=== PATIENT | male | born 1975 | race Caucasian/White ===

== ENCOUNTER 2017-04-04 23:12 | Emergency (ER) | payer BC ==
--- NOTE | 2017-04-05 01:29 | ED ORDER SUMMARY ---
..... Patient: RIAN EASLEY OrderSheet [facility] VisitID: [id number] [address] [place] [address] 41y, M Registration Date/Time: 04/04/2017 ORDER SHEET Weight: 185.9 kg (stated) Allergies: No Known Drug Allergy GENERAL ORDERS: MEDICATION ORDERS: Silver Nitrate Applicator Topical 1 application (NOW) (00:15 04/05/2017 HSoule verbal order read back to Jessica CORCORAN) (0:16 HSoule) IV FLUIDS: ORDER SHEET NOTES: [Electronically signed by Nelli Hallman (01:58 04/05/2017)] [Electronically signed by Ulisses Curry MD (23:59 04/05/2017)] [Electronically locked/signed by Nelli Hallman (01:58 04/05/2017)]
--- NOTE | 2017-04-05 01:29 | ED ORDER SUMMARY ---
..... Patient: RIAN EASLEY OrderSheet [facility] VisitID: [id number] [address] [place] [place] [address] 41y, M Registration Date/Time: 04/04/2017 ORDER SHEET Weight: 185.9 kg (stated) Allergies: No Known Drug Allergy GENERAL ORDERS: MEDICATION ORDERS: Silver Nitrate Applicator Topical 1 application (NOW) (00:15 04/05/2017 HSoule verbal order read back to Jessica CORCORAN) (0:16 HSoule) IV FLUIDS: ORDER SHEET NOTES: [Electronically signed by Nelli Hallman (01:58 04/05/2017)] [Electronically signed by Ulisses Curry MD (23:59 04/05/2017)] [Electronically locked/signed by Nelli Hallman (01:58 04/05/2017)]
--- NOTE | 2017-04-05 01:29 | ED CLINICAL REPORT ---
Clinical Report - Physicians/Mid Levels [facility] [address] [place] [address] 04/04/2017 23:14 Patient: RIAN EASLEY Time Seen: 00:00 Apr 05 2017. Arrived- By private vehicle. Historian- patient. CPT: ER phys charges level 4 plus (#[id number]). HISTORY OF PRESENT ILLNESS Chief Complaint: Bleeding form op site in mouth. This started yesterday This started yesterday. ( Patient reports surgery on his mouth to remove a stone in his salivary gland. He states that surgery was on Friday. He went and had to have it cauterized to stop some bleeding and then it began to bleed again this morning. He reports he is on blood thinners, he states he was not told to dose down before surgery but after cautery was told to reduce his dose and has done so.). and is still present. Pain described as moderate. No sore throat, mouth sores or nasal discharge or congestion. No swollen jaw or face. Similar symptoms previously: None. Recent medical care: The patient was seen recently at another facility in the office. REVIEW OF SYSTEMS No fever, eye discomfort, cough, difficulty breathing or chest pain. No nausea, headache, joint pain, skin rash or enlarged lymph nodes. No vomiting, epistaxis, sore throat, black stools or bloody stools. No abnormal bleeding, diabetic symptoms or easy bruising. All systems otherwise negative, except as recorded above. PAST HISTORY Hypertension. DVT - Deep Venous Thrombosis. Lymphedema. Diabetes Mellitus. ADDITIONAL SURGERIES: Fracture Repair. Tonsillectomy. Medications: Pravastatin Sodium Oral. Plavix Oral. Omeprazole Oral. Amitriptyline HCl Oral. Furosemide Oral. Metoprolol Tartrate Oral. Victoza Subcutaneous. Treceba- diabetes medication . NovoLOG Subcutaneous. Warfarin Sodium Oral (Tablet 10 mg), daily. Allergies: No Known Drug Allergy. SOCIAL HISTORY Never smoker. No alcohol use or drug use. ADDITIONAL NOTES The nursing notes have been reviewed. PHYSICAL EXAM Vital Signs: 04/04/2017 23:20 BP: 103/51. HR: 76. RR: 20. O2 saturation: 99%. Temp: 97.7 F. Pain level now: 0/10. Appearance: Alert. Patient in mild distress. Head: Normal external inspection. Eyes: Pupils equal, round and reactive to light. Conjunctivae and eyelids normal. ENT: Ears normal. Nose normal. No trismus present. (Sublingula surgical site with constant bleeding. Source pulsatile.). Neck: Trachea midline. No adenopathy. CVS: Normal heart rate and rhythm. Heart sounds normal. Pulses normal. Respiratory: No respiratory distress. Breath sounds normal. Chest nontender. Abdomen: Soft. Skin: Normal skin color. No rash. Extremities: Extremities nontender. Neuro: Oriented X 3. PROGRESS AND PROCEDURES PROCEDURES (Bleeding wound hemostasis procedure: Sublingual surgical site bleeding anterior and inferior. Mouth irrigated and local pressure applied until bleeding slowed. Silver nitrate cautery used to attempt hemostasis but failed. After 2% lidocaine with epi anesthesia, the bleeding site was finally controlled with 2 figure of eight stitches of 5.0 absorbable suture. Pt observed after irrigation and bleeding controlled.). Patient/family counseled. Disposition: Discharged. Condition: stable and improved. CLINICAL IMPRESSION Arteriolar bleeding from oral surgical site. INSTRUCTIONS No strenuous activity. (Drink cool liquids. Keep head elevated. Keep mouth closed and avoid moving tongue.). Warnings: Further evaluation is necessary. GENERAL WARNINGS: Return or contact your physician immediately if your condition worsens or changes unexpectedly, if not improving as expected, or if other problems arise. Your Current Medications: STOP TAKING THE FOLLOWING MEDICATIONS: Warfarin Sodium Oral : Tablet 10 mg, daily. CONTINUE TAKING THE FOLLOWING MEDICATIONS: Amitriptyline HCl Oral. Furosemide Oral. Metoprolol Tartrate Oral. NovoLOG Subcutaneous. Omeprazole Oral. Plavix Oral. Pravastatin Sodium Oral. Treceba- diabetes medication *. Victoza Subcutaneous. Follow-up: Follow up with your doctor in three days. Call for an appointment. Follow up with an ear, nose and throat physician (an cfd engineer) Friday in two days. Call for the next available appointment. Understanding of the discharge instructions verbalized by patient and family. Discharge instructions reviewed with and understanding was verbalized by spouse. (Electronically signed by Ulisses Curry MD 04/05/2017 23:59)
--- NOTE | 2017-04-05 01:29 | ED NURSING NOTES ---
Clinical Report - Nurses [facility] [address] [place] [address] 04/04/2017 23:14 [id number] Triage time 23:Apr 04 2017. Acuity: LEVEL 3. Chief Complaint: (Post op complication). SEPSIS SCREEN: Sepsis Screen: negative. Negative (no infection suspected/documented). ACOSTA COMA SCORE: Acosta Coma Scale: 15- eyes open spontaneously (4); best verbal response- oriented x 4 (5); best motor response- obeys commands (6). --23:28 Nelli Hallman 23:20 04/04/17. BP: 103/51. HR: 76. RR: 20. O2 saturation: 99% on room air. Temp: 97.7 F (oral). Pain level now: 0/10. --23:28 Nelli Hallman. Weight: 185.9 kg stated. Height/Length: 77 inches Per Patient. BMI: 48.6. --23:26 Nelli Hallman. Medications Warfarin Sodium Oral (Tablet 10 mg), daily. --23:23 Nelli Hallman NovoLOG Subcutaneous. --23:23 Nelli Hallman Treceba- diabetes medication . --23:23 Nelli Hallman Victoza Subcutaneous. --23:23 Nelli Hallman Metoprolol Tartrate Oral. --23:24 Nelli Hallman Furosemide Oral. --23:24 Nelli Hallman Amitriptyline HCl Oral. --23:24 Nelli Hallman Omeprazole Oral. --23:24 Nelli Hallman Plavix Oral. --23:25 Nelli Hallman Pravastatin Sodium Oral. --23:25 Nelli Hallman. Medication/allergy information source: the patient. --23:28 Nelli Hallman. Allergies No Known Drug Allergy. --23:25 Nelli Hallman. History Arrived by private vehicle. Historian: patient. Accompanied by family. Primary physician (valentin barker). This started yesterday. ( Patient reports surgery on his mouth to remove a stone in his salivary gland. He states that surgery was on Friday. He went and had to have it cauterized done to stop some bleeding and then it began to bleed again this morning. He reports he is on blood thinners, he states he was not told to dose down before surgery but after cautery was told to reduce his dose and has done so.). PAST MEDICAL HX: Immunizations: up-to-date. SOCIAL HX: Never smoker. No alcohol use or drug use. No infectious disease exposure. ABUSE ASSESSMENT: No report of abuse. FALL RISK ASSESSMENT: Fall risk assessment completed. No fall risk identified. NUTRITIONAL RISK ASSESSMENT: The nutritional risk assessment revealed no deficiencies. FUNCTIONAL ASSESSMENT: Functional assessment: no impairments noted. LEARNING NEEDS ASSESSMENT: The learning needs assessment revealed no barriers. SKIN INTEGRITY ASSESSMENT: Skin integrity risk assessment completed. No skin integrity risk identified. --23:28 Nelli Hallman. PROBLEMS: Hypertension. DVT - Deep Venous Thrombosis. Lymphedema. Diabetes Mellitus. --23:26 Nelli Hallman. ADDITIONAL SURGERIES: Fracture Repair. Tonsillectomy. --23: Nelli Hallman. Interventions ID band on patient. To treatment room. --:28 Nelli Hallman. PHYSICAL ASSESSMENT :04/04/17. Ambulatory to room. GENERAL / NEURO / PSYCH: Alert. Oriented X 4. Appears in no acute distress. HEENT: ( bleeding noted from right salivary gland). Mucous membranes are pink. RESPIRATORY: Respirations not labored. CVS: Normal sinus rhythm noted. SKIN: Skin is warm and dry. --23:28 Nelli Hallman. NURSING PROGRESS NOTES :04/04/17. Pulse oximeter and NIBP monitor placed on patient; monitor alarms on. Reassurance given to the patient and patient's family. Two patient identifiers checked. Call light placed in reach. Side rails up x 1. Bed placed in lowest position. Brakes of bed on. Patient ready for evaluation- chart flagged and ED physician notified. --: Nelli Hallman Patient ID band checked for patient name and birthdate: patient confirmed. Blood samples drawn from the right hand with Vacutainer and 23g butterfly by nurse per protocol ; labeled in presence of the patient and sent to lab: rainbow set and red, green, purple and blue top. --23:46 Thelma Quintero R.N. ( Provider at bedside). --00:15 Nelli Hallman 00:15 04/05/2017 SILVER NITRATE APPLICATOR (Silver Nitrate Applicator) Topical Topical Solution 1 application. Allergies verified and confirmed 5 rights. (Applied by provider). --00:16 Nelli Hallman WOUND REPAIR: Wound repair performed by ED physician. Assisted by one nurse. Preparation: suture tray set-up with 2% lidocaine with epi. Wound cleansed per physician. Procedure: wound repaired with sutures. Post-procedure: he was stable. Total time of assist / procedure: 15 minutes. --00:49 Nelli Hallman 01:00 04/05/17. BP: 154/95. HR: 70. RR: 20. O2 saturation: 98% on room air. --01:29 Nelli Hallman. DISPOSITION / DISCHARGE 01:29 04/05/17. Condition at departure: improved and stable. The goals identified in the patient's plan of care were met. FALL RISK ASSESSMENT: Fall risk assessment completed. No fall risk identified. --01:29 Nelli Hallman 01:26 04/05/17. BP: 160/100. HR: 75. RR: 20. O2 saturation: 98% on room air. Temp: deferred. Pain level now: 2/10. --01:29 Nelli Hallman 01:35 04/05/17. No learning barriers present. Discharge instructions provided and reviewed with the patient and spouse. Patient and spouse verbalized understanding. Written instructions provided in Danish. ( Keep mouth closed and avoid moving tongue. Drink only cold liquids. Keep head upright. Follow up on Friday as planned. Return if bleeding continues. Patient and spouse verbalized understanding and had no questions at this time.). The patient was discharged by the physician. He was discharged home and accompanied by spouse. He left the Emergency Department ambulatory and via private vehicle. Spouse driving. --01:58 Nelli Hallman. Locked/Released at 04/05/2017 1:58 by Nelli Hallman,
--- NOTE | 2017-04-05 01:29 | ED CLINICAL REPORT ---
Clinical Report - Physicians/Mid Levels [facility] [address] [place] [address] 04/04/2017 23:14 Patient: RIAN EASLEY Time Seen: 00:00 Apr 05 2017. Arrived- By private vehicle. Historian- patient. CPT: ER phys charges level 4 plus (#[id number]). HISTORY OF PRESENT ILLNESS Chief Complaint: Bleeding form op site in mouth. This started yesterday This started yesterday. ( Patient reports surgery on his mouth to remove a stone in his salivary gland. He states that surgery was on Friday. He went and had to have it cauterized to stop some bleeding and then it began to bleed again this morning. He reports he is on blood thinners, he states he was not told to dose down before surgery but after cautery was told to reduce his dose and has done so.). and is still present. Pain described as moderate. No sore throat, mouth sores or nasal discharge or congestion. No swollen jaw or face. Similar symptoms previously: None. Recent medical care: The patient was seen recently at another facility in the office. REVIEW OF SYSTEMS No fever, eye discomfort, cough, difficulty breathing or chest pain. No nausea, headache, joint pain, skin rash or enlarged lymph nodes. No vomiting, epistaxis, sore throat, black stools or bloody stools. No abnormal bleeding, diabetic symptoms or easy bruising. All systems otherwise negative, except as recorded above. PAST HISTORY Hypertension. DVT - Deep Venous Thrombosis. Lymphedema. Diabetes Mellitus. ADDITIONAL SURGERIES: Fracture Repair. Tonsillectomy. Medications: Pravastatin Sodium Oral. Plavix Oral. Omeprazole Oral. Amitriptyline HCl Oral. Furosemide Oral. Metoprolol Tartrate Oral. Victoza Subcutaneous. Treceba- diabetes medication . NovoLOG Subcutaneous. Warfarin Sodium Oral (Tablet 10 mg), daily. Allergies: No Known Drug Allergy. SOCIAL HISTORY Never smoker. No alcohol use or drug use. ADDITIONAL NOTES The nursing notes have been reviewed. PHYSICAL EXAM Vital Signs: 04/04/2017 23:20 BP: 103/51. HR: 76. RR: 20. O2 saturation: 99%. Temp: 97.7 F. Pain level now: 0/10. Appearance: Alert. Patient in mild distress. Head: Normal external inspection. Eyes: Pupils equal, round and reactive to light. Conjunctivae and eyelids normal. ENT: Ears normal. Nose normal. No trismus present. (Sublingula surgical site with constant bleeding. Source pulsatile.). Neck: Trachea midline. No adenopathy. CVS: Normal heart rate and rhythm. Heart sounds normal. Pulses normal. Respiratory: No respiratory distress. Breath sounds normal. Chest nontender. Abdomen: Soft. Skin: Normal skin color. No rash. Extremities: Extremities nontender. Neuro: Oriented X 3. PROGRESS AND PROCEDURES PROCEDURES (Bleeding wound hemostasis procedure: Sublingual surgical site bleeding anterior and inferior. Mouth irrigated and local pressure applied until bleeding slowed. Silver nitrate cautery used to attempt hemostasis but failed. After 2% lidocaine with epi anesthesia, the bleeding site was finally controlled with 2 figure of eight stitches of 5.0 absorbable suture. Pt observed after irrigation and bleeding controlled.). Patient/family counseled. Disposition: Discharged. Condition: stable and improved. CLINICAL IMPRESSION Arteriolar bleeding from oral surgical site. INSTRUCTIONS No strenuous activity. (Drink cool liquids. Keep head elevated. Keep mouth closed and avoid moving tongue.). Warnings: Further evaluation is necessary. GENERAL WARNINGS: Return or contact your physician immediately if your condition worsens or changes unexpectedly, if not improving as expected, or if other problems arise. Your Current Medications: STOP TAKING THE FOLLOWING MEDICATIONS: Warfarin Sodium Oral : Tablet 10 mg, daily. CONTINUE TAKING THE FOLLOWING MEDICATIONS: Amitriptyline HCl Oral. Furosemide Oral. Metoprolol Tartrate Oral. NovoLOG Subcutaneous. Omeprazole Oral. Plavix Oral. Pravastatin Sodium Oral. Treceba- diabetes medication *. Victoza Subcutaneous. Follow-up: Follow up with your doctor in three days. Call for an appointment. Follow up with an ear, nose and throat physician (an managed care director) Friday in two days. Call for the next available appointment. Understanding of the discharge instructions verbalized by patient and family. Discharge instructions reviewed with and understanding was verbalized by spouse. (Electronically signed by Ulisses Curry MD 04/05/2017 23:59)
--- NOTE | 2017-04-05 01:29 | ED NURSING NOTES ---
Clinical Report - Nurses [facility] [address] [place] [address] 04/04/2017 23:14 [id number] Triage time 23:Apr 04 2017. Acuity: LEVEL 3. Chief Complaint: (Post op complication). SEPSIS SCREEN: Sepsis Screen: negative. Negative (no infection suspected/documented). ACOSTA COMA SCORE: Acosta Coma Scale: 15- eyes open spontaneously (4); best verbal response- oriented x 4 (5); best motor response- obeys commands (6). --23:28 Nelli Hallman 23:20 04/04/17. BP: 103/51. HR: 76. RR: 20. O2 saturation: 99% on room air. Temp: 97.7 F (oral). Pain level now: 0/10. --23:28 Nelli Hallman. Weight: 185.9 kg stated. Height/Length: 77 inches Per Patient. BMI: 48.6. --23:26 Nelli Hallman. Medications Warfarin Sodium Oral (Tablet 10 mg), daily. --23:23 Nelli Hallman NovoLOG Subcutaneous. --23:23 Nelli Hallman Treceba- diabetes medication . --23:23 Nelli Hallman Victoza Subcutaneous. --23:23 Nelli Hallman Metoprolol Tartrate Oral. --23:24 Nelli Hallman Furosemide Oral. --23:24 Nleli Hallman Amitriptyline HCl Oral. --23:24 Nelli Hallman Omeprazole Oral. --23:24 Nelli Hallman Plavix Oral. --23:25 Nelli Hallman Pravastatin Sodium Oral. --23:25 Nelli Hallman. Medication/allergy information source: the patient. --23:28 Nelli Hallman. Allergies No Known Drug Allergy. --23:25 Nelli Hallman. History Arrived by private vehicle. Historian: patient. Accompanied by family. Primary physician (valentin abrker). This started yesterday. ( Patient reports surgery on his mouth to remove a stone in his salivary gland. He states that surgery was on Friday. He went and had to have it cauterized done to stop some bleeding and then it began to bleed again this morning. He reports he is on blood thinners, he states he was not told to dose down before surgery but after cautery was told to reduce his dose and has done so.). PAST MEDICAL HX: Immunizations: up-to-date. SOCIAL HX: Never smoker. No alcohol use or drug use. No infectious disease exposure. ABUSE ASSESSMENT: No report of abuse. FALL RISK ASSESSMENT: Fall risk assessment completed. No fall risk identified. NUTRITIONAL RISK ASSESSMENT: The nutritional risk assessment revealed no deficiencies. FUNCTIONAL ASSESSMENT: Functional assessment: no impairments noted. LEARNING NEEDS ASSESSMENT: The learning needs assessment revealed no barriers. SKIN INTEGRITY ASSESSMENT: Skin integrity risk assessment completed. No skin integrity risk identified. --23:28 Nelli Hallman. PROBLEMS: Hypertension. DVT - Deep Venous Thrombosis. Lymphedema. Diabetes Mellitus. --23:26 Nelli Hallman. ADDITIONAL SURGERIES: Fracture Repair. Tonsillectomy. --23: eNlli Hallman. Interventions ID band on patient. To treatment room. --:28 Nelli Hallman. PHYSICAL ASSESSMENT :04/04/17. Ambulatory to room. GENERAL / NEURO / PSYCH: Alert. Oriented X 4. Appears in no acute distress. HEENT: ( bleeding noted from right salivary gland). Mucous membranes are pink. RESPIRATORY: Respirations not labored. CVS: Normal sinus rhythm noted. SKIN: Skin is warm and dry. --23:28 Nelli Hallman. NURSING PROGRESS NOTES :04/04/17. Pulse oximeter and NIBP monitor placed on patient; monitor alarms on. Reassurance given to the patient and patient's family. Two patient identifiers checked. Call light placed in reach. Side rails up x 1. Bed placed in lowest position. Brakes of bed on. Patient ready for evaluation- chart flagged and ED physician notified. --: Nelli Hallman Patient ID band checked for patient name and birthdate: patient confirmed. Blood samples drawn from the right hand with Vacutainer and 23g butterfly by nurse per protocol ; labeled in presence of the patient and sent to lab: rainbow set and red, green, purple and blue top. --23:46 Thelma Quintero R.N. ( Provider at bedside). --00:15 Nelli Hallman 00:15 04/05/2017 SILVER NITRATE APPLICATOR (Silver Nitrate Applicator) Topical Topical Solution 1 application. Allergies verified and confirmed 5 rights. (Applied by provider). --00:16 Nelli Hallman WOUND REPAIR: Wound repair performed by ED physician. Assisted by one nurse. Preparation: suture tray set-up with 2% lidocaine with epi. Wound cleansed per physician. Procedure: wound repaired with sutures. Post-procedure: he was stable. Total time of assist / procedure: 15 minutes. --00:49 Nelli Hallman 01:00 04/05/17. BP: 154/95. HR: 70. RR: 20. O2 saturation: 98% on room air. --01:29 Nelli Hallman. DISPOSITION / DISCHARGE 01:29 04/05/17. Condition at departure: improved and stable. The goals identified in the patient's plan of care were met. FALL RISK ASSESSMENT: Fall risk assessment completed. No fall risk identified. --01:29 Nelli Hallman 01:26 04/05/17. BP: 160/100. HR: 75. RR: 20. O2 saturation: 98% on room air. Temp: deferred. Pain level now: 2/10. --01:29 Nelli Hallman 01:35 04/05/17. No learning barriers present. Discharge instructions provided and reviewed with the patient and spouse. Patient and spouse verbalized understanding. Written instructions provided in Frisian. ( Keep mouth closed and avoid moving tongue. Drink only cold liquids. Keep head upright. Follow up on Friday as planned. Return if bleeding continues. Patient and spouse verbalized understanding and had no questions at this time.). The patient was discharged by the physician. He was discharged home and accompanied by spouse. He left the Emergency Department ambulatory and via private vehicle. Spouse driving. --01:58 Nelli Hallman. Locked/Released at 04/05/2017 1:58 by Nelli Hallman,
--- NOTE | 2017-04-05 23:59 | ED MED RECONCILIATION SUMMARY ---
Patient: RIAN EASLEY Medication Reconciliation Report [facility] VisitID: [id number] [address] [place] [address] 41y, M Registration Date/Time: 04/04/2017 Weight: 185.9 kg Height/Length: 77 in. BMI: 48.6 ALLERGIES: No Known Drug Allergy The patient's Home Medications are listed below: STOP TAKING THE FOLLOWING MEDICATIONS: Warfarin Sodium Oral (10 mg), daily CONTINUE TAKING THE FOLLOWING MEDICATIONS: Amitriptyline HCl Oral Furosemide Oral Metoprolol Tartrate Oral NovoLOG Subcutaneous Omeprazole Oral Plavix Oral Pravastatin Sodium Oral Treceba- diabetes medication Victoza Subcutaneous The source(s) of the original Home Medication information: patient The following Medications were given to the patient in the Emergency Department: SILVER NITRATE APPLICATOR [TOPICAL] Topical 1 application, administered: 04/05/2017 12:15:00 AM The following Medications were prescribed to the patient: None.
--- NOTE | 2017-04-05 23:59 | ED MAR SUMMARY ---
..... Medication Administration Record [address] [place] [address] Patient: RIAN EASLEY Visit ID: [id number] 41y, M Weight: 185.9 kg Height/Length: 77 in BMI: 48.6 ALLERGIES: No Known Drug Allergy Given 00:15 04/05/2017 Nelli Hallman, Medication Administered: SILVER NITRATE APPLICATOR [TOPICAL] (SILVER NITRATE APPLICATOR), Dose: 1 application Topical Solution Topical. Medication Ordered: Silver Nitrate Applicator Topical 1 application (NOW).
--- NOTE | 2017-04-05 23:59 | ED MED RECONCILIATION SUMMARY ---
Patient: RIAN EASLEY Medication Reconciliation Report [facility] VisitID: [id number] [address] [place] [address] 41y, M Registration Date/Time: 04/04/2017 Weight: 185.9 kg Height/Length: 77 in. BMI: 48.6 ALLERGIES: No Known Drug Allergy The patient's Home Medications are listed below: STOP TAKING THE FOLLOWING MEDICATIONS: Warfarin Sodium Oral (10 mg), daily CONTINUE TAKING THE FOLLOWING MEDICATIONS: Amitriptyline HCl Oral Furosemide Oral Metoprolol Tartrate Oral NovoLOG Subcutaneous Omeprazole Oral Plavix Oral Pravastatin Sodium Oral Treceba- diabetes medication Victoza Subcutaneous The source(s) of the original Home Medication information: patient The following Medications were given to the patient in the Emergency Department: SILVER NITRATE APPLICATOR [TOPICAL] Topical 1 application, administered: 04/05/2017 12:15:00 AM The following Medications were prescribed to the patient: None.
--- NOTE | 2017-04-05 23:59 | ED DISCHARGE INSTRUCTIONS ---
Patient: RIAN EASLEY General Instructions [facility] VisitID: [id number] [address] [place] [address] 41y, M Registration Date/Time: 04/04/2017 Arteriolar bleeding from oral surgical site. INSTRUCTIONS No strenuous activity. (Drink cool liquids. Keep head elevated. Keep mouth closed and avoid moving tongue.). Warnings: Further evaluation is necessary. GENERAL WARNINGS: Return or contact your physician immediately if your condition worsens or changes unexpectedly, if not improving as expected, or if other problems arise. Your Current Medications: STOP TAKING THE FOLLOWING MEDICATIONS: Warfarin Sodium Oral : Tablet 10 mg, daily. CONTINUE TAKING THE FOLLOWING MEDICATIONS: Amitriptyline HCl Oral. Furosemide Oral. Metoprolol Tartrate Oral. NovoLOG Subcutaneous. Omeprazole Oral. Plavix Oral. Pravastatin Sodium Oral. Treceba- diabetes medication *. Victoza Subcutaneous. Follow-up: Follow up with your doctor in three days. Call for an appointment. Follow up with an ear, nose and throat physician (an handy worker) Friday in two days. Call for the next available appointment. Understanding of the discharge instructions verbalized by patient and family. Discharge instructions reviewed with and understanding was verbalized by spouse. No strenuous activity. (Electronically signed by Ulisses Curry MD 04/05/2017 23:59)
--- NOTE | 2017-04-05 23:59 | ED DISCHARGE INSTRUCTIONS ---
Patient: RIAN EASLEY General Instructions [facility] VisitID: [id number] [address] [place] [address] 41y, M Registration Date/Time: 04/04/2017 Arteriolar bleeding from oral surgical site. INSTRUCTIONS No strenuous activity. (Drink cool liquids. Keep head elevated. Keep mouth closed and avoid moving tongue.). Warnings: Further evaluation is necessary. GENERAL WARNINGS: Return or contact your physician immediately if your condition worsens or changes unexpectedly, if not improving as expected, or if other problems arise. Your Current Medications: STOP TAKING THE FOLLOWING MEDICATIONS: Warfarin Sodium Oral : Tablet 10 mg, daily. CONTINUE TAKING THE FOLLOWING MEDICATIONS: Amitriptyline HCl Oral. Furosemide Oral. Metoprolol Tartrate Oral. NovoLOG Subcutaneous. Omeprazole Oral. Plavix Oral. Pravastatin Sodium Oral. Treceba- diabetes medication *. Victoza Subcutaneous. Follow-up: Follow up with your doctor in three days. Call for an appointment. Follow up with an ear, nose and throat physician (an housekeeping lead) Friday in two days. Call for the next available appointment. Understanding of the discharge instructions verbalized by patient and family. Discharge instructions reviewed with and understanding was verbalized by spouse. No strenuous activity. (Electronically signed by Ulisses Curry MD 04/05/2017 23:59)
--- NOTE | 2017-04-05 23:59 | ED MAR SUMMARY ---
..... Medication Administration Record [address] [place] [address] Patient: RIAN EASLEY Visit ID: [id number] 41y, M Weight: 185.9 kg Height/Length: 77 in BMI: 48.6 ALLERGIES: No Known Drug Allergy Given 00:15 04/05/2017 Nelli Hallman, Medication Administered: SILVER NITRATE APPLICATOR [TOPICAL] (SILVER NITRATE APPLICATOR), Dose: 1 application Topical Solution Topical. Medication Ordered: Silver Nitrate Applicator Topical 1 application (NOW).
== END 2017-04-05 01:35 | disposition home or self-care (01) ==
LOC: ED SRH 23:12
DX: K91.841 Postprocedural hemorrhage of a digestive system organ or structure following other procedure (principal); I10 Essential (primary) hypertension; E11.9 Type 2 diabetes mellitus without complications; Z86.718 Personal history of other venous thrombosis and embolism; Z79.01 Long term (current) use of anticoagulants; Z79.4 Long term (current) use of insulin; Z79.899 Other long term (current) drug therapy

== ENCOUNTER 2017-05-15 03:08 | Inpatient (IN) | payer SELFPAY ==
[~2017-05-15] VITALS: Ht 195.6 cm; Wt 181.9 kg
--- NOTE | 2017-05-15 04:36 | Progress Note ---
Subjective General Admission History and Physical Examination Patient Name: Edward Perea Admission Date: May 15, 2017 Primary Care Provider: Gelacio Beard M.D. Attending Physician: Ag Self MD Admitting Physician: Ag Self M.D. Code Status: FULL CODE Room: 211 Status: Inpatient, ACU SUBJECTIVE Historian: Patient Reliability: Good Chief Complaint: Pain, redness, swelling left leg of 2 days duration History of Present Illness: The patient is a 46-year-old white male with a significant past medical history of type 2 diabetes mellitus, lymphedema of lower extremities, recurrent cellulitis, DVT, morbid obesity, who presented to [facility] emergency department on the day of admission secondary to complaints of pain, redness, swelling of left lower leg of 2 days duration. [facility] ER evaluation was consistent with cellulitis involving left lower leg. Secondary to the above, the patient was admitted by Ag Self M.D. for further evaluation and treatment. PAST MEDICAL HISTORY Illnesses: 1. Diabetes mellitus type 2 2. DVT 3. Chronic anticoagulation 4. Lymphedema lower extremities 5. Hypertension 6. Hyperlipidemia 7. Gastroesophageal reflux Allergies: 1. No Known Drug Allergies Medications: 1. Albuterol HFA 2 inhalations every 4 hours when necessary shortness of breath 2. Amitriptyline 25 mg by mouth daily at bedtime 3. Plavix 75 mg by mouth daily 4. Furosemide 40 mg by mouth when necessary leg swelling 5. NovoLog 25 units subcutaneous after meals 6. Tresiba 85 units subcutaneous daily 7. Victoza 18 mg subcutaneous daily 8. Pravastatin 40 mg by mouth daily at bedtime 9. Imitrex 50 mg by mouth when necessary headache 10. Coumadin 10 mg by mouth daily except 12.5 mg by mouth on Friday Surgery: 1. 2016, salivary stone removal 2. 2014, tonsillectomy Injuries: 1. Left arm fracture 2. Nasal fracture Hospitalizations: 1. For above medical problems and surgery FAMILY HISTORY Parents: 1. Father, Julio, , 80, alcoholism, 2. Mother, Veronika, , 53, cancer type unknown Siblings: 1. Female, 70, living, 46, healthy Children: 1. Male, Kai, living, 3, healthy Other significant family history: Leiden factor V deficiency SOCIAL HISTORY 1. Marital Status: 2. Latter Day: None 3. Education: High school, 12 grade 4. 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 5. Occupational health exposures: Secondhand smoke HABITS 1. Tobacco: None 2. Drugs: None 3. Alcohol: None 4. Caffeine: Coffee-One cup per day, soft drinks- 2 cans per day HEALTH SUPERVISION Item/Test 1. Vision screen: 2015 2. Cholesterol Profile: 2016 3. PSA: No previous 4. SOPHIA: 2015 5. FOBT: 2014 6. Blood Glucose: 2016 7. Colonoscopy: 2015 8. History and physical exam: 2014 9. Audiogram: No recent 10. Mammogram: Not applicable 11. Pap/pelvic exam: Not applicable IMMUNIZATIONS: 1. Pneumococcal: 2015 2. Influenza: 2015 3. Tetanus: No recent 4. Hepatitis B vaccine: 2009 ADVANCED DIRECTIVES: 1. Living well: No 2. POLST: No 3. Code Status: FULL CODE 4. Durable Power Clinical Research Assistant Health care: No 5. Donor card: No REVIEW OF SYSTEMS Remarkable for those things stated in the history of present illness and past medical history. Seventeen point review of system completed with the following notable findings: General: Pain, weakness Skin: Rash, dryness Ears: Drainage Nose: Nosebleeds Throat: Hoarseness, difficulty swallowing Respiratory: Cough, asthma/COPD Cardiovascular: Ankle swelling, hypertension, shortness of breath when lying flat Genitourinary: Frequent urination, nocturia Musculoskeletal: Back ache Endocrine: Diabetes mellitus Physical Exam General Appearance Alert, Oriented X3, Cooperative, No acute distress HEENT Atraumatic, PERRLA, EOMI, Moist mucous membranes Lungs Clear to auscultation, Normal air movement Neck Supple, No JVD, 2+ carotid pulse wo bruit Cardiovascular Regular rate and rhythm, Normal S1 and S2, No murmurs, gallops, rubs Abdomen Normal bowel sounds, Soft, No tenderness, No guarding Extremities No cyanosis, No clubbing, Bilateral LE edema L>>R. (L) lower leg erythema present. See photodocumentation. Neurological Cranial nerves intact, Strength 5/5 x4 ext's, No lateralizing signs Psych/Mental Status Mental status normal, Mood normal LAB Results Laboratory Tests 05/15 05/15 05/15 0335 [id number] Chemistry Plasma Sodium (136 - 145 mmol/L) 138 Plasma Potassium (3.5 - 5.1 mmol/L) 3.9 Plasma Chloride (98 - 107 mmol/L) 100 CO2 (Enzymatic) (21 - 32 mmol/L) 27 BUN (7 - 18 mg/dL) 18 Creatinine (0.6 - 1.3 mg/dL) 1.3 Est GFR ( Amer) (mL/min) >60 Est GFR (Non-Af Amer) (mL/min) >60 Glucose (70 - 110 mg/dL) 249 Lactic Acid (0.4 - 2.0 mmol/L) 1.9 Plasma Calcium (8.5 - 10.1 mg/dL) 9.2 Total Bilirubin (0.0 - 1.0 mg/dL) 0.7 AST (15 - 37 U/L) 19 ALT (12 - 78 U/L) 46 Alkaline Phosphatase (46 - 116 U/L) 102 Creatine Kinase (24 - 260 U/L) 276 CK-MB (CK-2) (0.5 - 3.2 ng/mL) 1.8 CK/CKMB % Calc (0.0 - 4.0 %) 0.7 Troponin (0.00 - 1.5 ng/mL) 0.03 B-Natriuretic Peptide (5 - 100 pg/ml) 34.8 Total Protein (6.4 - 8.2 g/dL) 7.9 Albumin (3.3 - 5.0 g/dL) 3.5 Coagulation INR (0.8 - 1.2) 2.2 APTT (24 - 34 SECONDS) 35 Hematology WBC (4.5 - 11.5 K/uL) 25.0 RBC (4.50 - 5.90 M/uL) 5.07 Hgb (13.5 - 17.5 gm/dL) 14.4 Hct (41.0 - 53.0 %) 45.2 MCV (80 - 100 fL) 89 MCH (26 - 34 pg) 28 RDW (11.6 - 14.8 %) 16.8 Neut % (Auto) (50 - 75 %) 91.6 Lymph % (Auto) (25 - 40 %) 4.9 [place] % (Auto) (3 - 14 %) 3.3 Eos % (Auto) (0 - 4 %) 0.2 Baso % (Auto) (0 - 2 %) 0 Plt Count, EDTA (150 - 400 K/uL) 241 PUBS MCHC (31 - 37 g/dL) 32 Microbiology Date/Time Procedure - Status Source Growth 05/15 420 Blood Culture - RECD BLOOD 05/15 0335 Blood Culture - RECD BLOOD Assessment and Plan Problem List 1. Cellulitis and abscess of leg Status Acute Onset Date Unknown Plan -the patient presents with findings of cellulitis left lower leg -no ulceration present -vancomycin per pharmacy protocol -monitor 2. Obesity Status Chronic Onset Date Unknown Plan -patient with findings of obesity -dietary consultation -encourage weight reduction posthospitalization 3. Diabetes mellitus Status Chronic Onset Date Unknown Plan -patient with history of type 2 diabetes mellitus -continue present outpatient medical regimen with insulin sliding scale -monitor blood sugar before meals and at bedtime -blood sugar poorly controlled at this time -check hemoglobin A1c -diabetic education 4. Rhabdomyolysis Status Acute Onset Date Unknown Plan -patient presents with findings of mild rhabdomyolysis -monitor -encourage oral intake of fluids/IV fluids 5. Chronic anticoagulation Status Chronic Onset Date Unknown Plan -patient with history of chronic anticoagulation/DVT -continue outpatient medical regimen -monitor daily INR 6. Hypertension Status Chronic Onset Date Unknown Plan -patient with history of hypertension -blood pressure control -monitor -low salt diet -adjustments in medical regimen based on blood pressure measurements 7. DVT (deep venous thrombosis) Status Chronic Onset Date Unknown Plan -see above 8. Hyperlipidemia Status Chronic Onset Date Unknown Plan -patient with history of hyperlipidemia -continue outpatient medical regimen -low cholesterol/fat diet 9. Lymphedema Status Chronic Onset Date Unknown Plan -patient with findings of lymphedema -outpatient follow-up with PCP Current status: Fair, unstable Anticipated discharge date: Anticipated discharge in 3-4 days Anticipated discharge placement: Home Patient care time: Time in chart review, patient interview, physical exam, CPOE, and care documentation: 70 mins Visit to patient today: 2 Complexity of care: High DVT prophylaxis: Coumadin E&M Codes Admission: Inpt-High/51913
--- NOTE | 2017-05-15 04:41 | ED NURSING NOTES ---
Clinical Report - Nurses [place] [address] [place] [address] 05/15/2017 3:11 [id number] Triage time 03:21. Acuity: LEVEL 3. Chief Complaint: RIGHT LOWER EXTREMITY SWELLING. LEFT LOWER EXTREMITY PAIN, SWELLING and REDNESS. --03:26 Colleen Cool R.N. 03:20 05/15/17. BP: 179/100. HR: 138. RR: 18. O2 saturation: 98% on room air. Temp: 98.8 F (oral). Davis-Triplett pain scale: 4/10. --03:26 Colleen Cool R.N. Weight: 181.4 kg stated. Height/Length: 77 inches Per Patient. BMI: 47.5. --03:24 Colleen Cool R.N. Medications Amitriptyline HCl Oral. Furosemide Oral. Metoprolol Tartrate Oral. NovoLOG Subcutaneous. Omeprazole Oral. Plavix Oral. Pravastatin Sodium Oral. Treceba- diabetes medication . Victoza Subcutaneous. Warfarin Sodium Oral (Tablet 10 mg), daily. --03:24 Colleen Cool R.N. SUMAtriptan Succinate Oral, at bedtime. --03:25 Colleen Cool R.N. Allergies No Known Drug Allergy. --03:24 Colleen Cool R.N. History Arrived by private vehicle. Historian: patient. Accompanied by family. Primary physician (Gelacio Beard ([facility])). This occurred (has been going on for "years" but last night the pain started, pt reports "when (he) feels pain, it's usually an infection"). PAST MEDICAL HX: Tetanus status: up-to-date. Immunizations: up-to-date. SOCIAL HX: Never smoker. No alcohol use or drug use. --03:26 Colleen Cool R.N. PROBLEMS: Hypertension. DVT - Deep Venous Thrombosis. Lymphedema. Diabetes Mellitus. --03:24 Colleen Cool R.N. ADDITIONAL SURGERIES: Fracture Repair. Tonsillectomy. --03:24 Colleen Cool R.N. Interventions ID band on patient. To treatment room. --03:26 Colleen Cool R.N. PHYSICAL ASSESSMENT Ambulatory to room. Patient gowned. GENERAL / NEURO / PSYCH: Oriented X 4. Alert. Appears in no acute distress. EXTREMITIES: Edema of the right lower extremity involving the foot, ankle and lower leg; left lower extremity involving the foot, ankle and lower leg. Right leg: swelling. Left leg: tenderness, swelling and erythema. SKIN: Skin is warm and dry. --03:27 Colleen Cool R.N. NURSING PROGRESS NOTES Two patient identifiers checked. Call light placed in reach. Side rails up x 1. Bed placed in lowest position. Brakes of bed on. --03: Colleen Cool R.N. Patient ready for evaluation- chart flagged. --03:27 Colleen Cool R.N. EKG time: (0328). EKG was performed by a lloyd and shown to the ED physician. --03:30 Shahnaz Armenta, ER Tech1 03:35 05/15/2017 Site #1 started via IV in the right forearm with an 20g angiocath, with aseptic technique and good blood return; one attempt. Blood drawn: rainbow set and cultures x1. Labeled in the presence of the patient and sent to the lab. Saline lock flushed with 10 mL saline (Lactate also drawn at time of IV start, placed on ice and sent to lab). --03:44 Colleen Cool R.N. 03:40- Pt ambulates to restroom, states he has diarrhea. --03:45 Colleen Cool R.N. 04:14 05/15/2017 Started bag #1 1000 mL IV Fluids IV NS (Saline); bolus of 500 mL over 30 minute(s) then at 125 mL/hr via site #1 via IV pump. Allergies verified and confirmed 5 rights. IV patency established. IV site checked: no pain, redness, or swelling. IV flushed thoroughly pre- and post-medication administration. --04:22 Colleen Cool R.N. 04:20. Patient ID band checked for patient name and birthdate: patient confirmed. Blood samples drawn from the left antecubital space with syringe and 23g butterfly by [employer] per protocol ; labeled in presence of the patient and sent to lab: blood culture (2nd set). --04:25 Shahnaz Armenta, SABA Tech1 04:20. Point of care testing: performed by [employer]. Glucose: 230. Result shown to the RN. Orders were received. --04:26 Shahnaz Armenta ER Tech1 04:35 05/15/2017 Started 2 gm of Vancomycin IVPB in bag #1 500 mL; at 270 mL/hr over 2 hour(s) via site #1 via IV pump. Allergies verified and confirmed 5 rights. IV patency established. IV site checked: no pain, redness, or swelling. IV flushed thoroughly pre- and post-medication administration. --04:38 Colleen Cool R.N. 04:38 05/15/17. BP: 180/99. HR: 112. RR: 15. O2 saturation: 97% on room air. Pain level now: 0/10. --04:39 Colleen Cool R.N. ( Admitting MD, Dr Self, at bedside to assess pt.). --04:39 Colleen Cool R.N. DISPOSITION / DISCHARGE 05:41 05/15/17. BP: 178/112. HR: 111. RR: 15. O2 saturation: 97%. Temp: deferred. Davis-Triplett pain scale: 4/10. --05:43 Colleen Cool R.N. 05:44 05/15/2017 IV Fluids IV NS Continued: at the rate of 125 mL/hr. 575 mL remaining bag #1. IV patency established. IV site checked: no pain, redness, or swelling. IV flushed thoroughly. --05:44 Colleen Cool R.N. 05:44 05/15/2017 Vancomycin IVPB Continued: at the rate of 270 mL/hr. 250 mL remaining bag #1. IV patency established. IV site checked: no pain, redness, or swelling. IV flushed thoroughly. --05:44 Colleen Cool R.N. 05:45 05/15/2017 Site #[address] upon admission; flushes easily. --05:45 Colleen Cool R.N. Report was given to a nurse via a phone call. Report included patient's care, treatment, medications, reviewed medication reconcilliation, and condition (including any recent changes or anticipated changes). All questions were answered. Report was acknowledged. --05:45 Colleen Cool R.N. Admitted to Acute Care. --05:46 Colleen Cool R.N. Transported via stretcher by transport team with IV. --05:54 Colleen Cool R.N. Departure time: 05:54. --05:54 Colleen Cool R.N. Locked/Released at 05/15/2017 5:55 by Colleen Cool R.N.
--- NOTE | 2017-05-15 04:41 | ED ORDER SUMMARY ---
..... Patient: RIAN EASLEY OrderSheet [facility] VisitID: [id number] [place] [address] 41y, M Registration Date/Time: 05/15/2017 ORDER SHEET Weight: 181.4 kg (stated) Allergies: No Known Drug Allergy GENERAL ORDERS: Chest 1V Urgent (03:05/15/2017 Buddy CORCORAN) (Ack 3:21 CHagerty ER Supervisory Cbp Officer) (3:36 MCampbell) Dice Spotter (Continuous) (03:05/15/2017 Buddy CORCORAN) (3:51 RCollier R.N.) CBC w Diff Urgent (03:05/15/2017 Buddy CORCORAN) (Ack 3:21 CHagerty ER Supervisory Cbp Officer) (3:45 RCollier R.N.) CMP Urgent (03:05/15/2017 Buddy CORCORAN) (Ack 3:21 CHagerty ER Supervisory Cbp Officer) (3:45 RCollier R.N.) PT with INR Urgent (03:05/15/2017 Buddy CORCORAN) (Ack 3:21 CHagerty ER Supervisory Cbp Officer) (3:45 RCollier R.N.) PTT Urgent (03:05/15/2017 Buddy CORCORAN) (Ack 3:21 CHagerty ER Supervisory Cbp Officer) (3:45 RCollier R.N.) CPK Urgent (03:05/15/2017 Buddy CORCORAN) (Ack 3:21 CHagerty ER Supervisory Cbp Officer) (3:45 RCollier R.N.) Troponin-I Urgent (03:05/15/2017 Buddy CORCORAN) (Ack 3:21 CHagerty ER Supervisory Cbp Officer) (3:45 RCollier R.N.) BNP Urgent (03:05/15/2017 Buddy CORCORAN) (Ack 3:21 CHagerty ER Supervisory Cbp Officer) (3:45 RCollier R.N.) Pulse oximeter (03:05/15/2017 Buddy CORCORAN) (3:30 ALawrence ER Tech1) EKG - ER Stat (03:05/15/2017 Buddy CORCORAN) (Ack 3:22 CHagerty ER Supervisory Cbp Officer) (3:30 ALawrence ER Tech1) US Venous Left Urgent (03:27 05/15/2017 Buddy CORCORAN) (Ack 3:28 Tim ER Supervisory Cbp Officer) (4:13 CHagdavid ER Supervisory Cbp Officer) Blood Culture (No) (N/A) Urgent (03:27 05/15/2017 Buddy CORCORAN) (Ack 3:28 Tim ER Supervisory Cbp Officer) (4:22 RCollier R.N.) Lactate, Serum Urgent (03:27 05/15/2017 Buddy CORCORAN) (Ack 3:28 Tim ER Supervisory Cbp Officer) (3:45 RCollier R.N.) MEDICATION ORDERS: IV FLUIDS: IV Saline Lock (03:20 05/15/2017 Buddy CORCORAN) (Ack 3:27 RCollier R.N.) IV NS : initial bolus 500 mL (1000 mL/hr), then 125 mL/hr for 4h (NOW); Urgent (04:04 05/15/2017 Buddy CORCORAN) (4:22 RCollier R.N.) Vancomycin IV 2 gm/500 mL (NOW) (04:21 05/15/2017 Buddy CORCORAN) (Ack 4:22 RCollier R.N.) (4:38 RCollier R.N.) ORDER SHEET NOTES: [Electronically signed by Colleen Cool R.N. (05:55 05/15/2017)] [Electronically signed by Jose Roberto Kimbrough MD (09:14 05/15/2017)] [Electronically locked/signed by Colleen Cool R.N. (05:55 05/15/2017)]
--- NOTE | 2017-05-15 04:41 | ED CLINICAL REPORT ---
Clinical Report - Physicians/Mid Levels [facility] [address] [place] [address] 05/15/2017 3:11 [id number] Time Seen: 03:19. Arrived- By private vehicle. Historian- patient. HISTORY OF PRESENT ILLNESS Chief Complaint: LOWER EXTREMITY PAIN. Severity is described as being .it has become recently worse. The quality is noted to be "pain". This started last night and is still present. It was abrupt in onset and has been constant. Symptoms located in the area of the left leg. The patient has had redness. He has had pre-existing severe swelling of the right lower leg and severe swelling of the left lower leg, (chronically). Patient denies a recent injury. Similar symptoms previously: Many times. Diagnosis: infection. REVIEW OF SYSTEMS No chills, sweats, cough, difficulty breathing or palpitations. No abdominal pain, black stools, bloody stools, nausea or vomiting. No urinary problems. He has had mild, pressure-like central chest pain (at about midnight), currently gone. He has had diarrhea. All systems otherwise negative, except as recorded above. PAST HISTORY Problems: Hypertension. DVT - Deep Venous Thrombosis. Lymphedema. Diabetes Mellitus. Additional Surgeries: Fracture Repair. Tonsillectomy. Medications: SUMAtriptan Succinate Oral, at bedtime. Amitriptyline HCl Oral. Furosemide Oral. Metoprolol Tartrate Oral. NovoLOG Subcutaneous. Omeprazole Oral. Plavix Oral. Pravastatin Sodium Oral. Treceba- diabetes medication . Victoza Subcutaneous. Warfarin Sodium Oral (Tablet 10 mg), daily. Allergies: No Known Drug Allergy. SOCIAL HISTORY Never smoker. No alcohol use or drug use. FAMILY HISTORY Denies family medical history. ADDITIONAL NOTES The nursing notes have been reviewed. PHYSICAL EXAM Vital Signs: 05/15/2017 03:20 BP: 179/100. HR: 138. RR: 18. O2 saturation: 98%. Temp: 98.8 F. Davis-Triplett pain scale: 4/10. Have been reviewed. Appearance: Alert. He is morbidly obese. Eyes: Pupils equal, round and reactive to light. ENT: Pharynx normal. Neck: Normal inspection. Neck supple. No JVD. CVS: Normal heart rate and rhythm. Heart sounds normal. Respiratory: No respiratory distress. Breath sounds normal. Abdomen: Soft and nontender. No organomegaly. Back: ROM normal. Skin: Skin warm and dry. Extremities: Swelling, warmth, tenderness and erythema present in the left leg. 3+ pitting edema of the right lower extremity involving the ankle and lower leg; 4+ pitting edema of the left lower extremity involving the ankle and lower leg. LABS, X-RAYS, AND EKG EKG: Rate: 132. Non-specific ST segment / T wave abnormalities. Prior EKG unavailable. The study has been independently viewed by me. Chest X-ray: No acute disease. The X-rays were interpreted by the radiologist and contemporaneously by me. Lower Extremity Sonography: IMPRESSION: 1. Partially limited study. 2. Negative venous ultrasound of the left lower extremity. The study was interpreted by the radiologist and contemporaneously by me. Laboratory Tests: DIFFERENTIAL-MANUAL: (DENILSON: 05/15/2017 03:35) ( MsgRcvd 05/15/2017 05:21) Final results Test Result Flag Units (Reference) WHITE BLOOD COUNT 25.0 H K/uL (4.5-11.5) RED BLOOD COUNT 5.07 M/uL (4.50-5.90) HEMOGLOBIN 14.4 gm/dL (13.5-17.5) HEMATOCRIT 45.2 % (41.0-53.0) MEAN CELL VOLUME 89 fL (80-100) MEAN CORPUSCULAR HGB 28 pg (26-34) MEAN CORPUSCULAR HGB CONC 32 g/dL (31-37) RED CELL DISTRIBUTION WIDTH 16.8 H % (11.6-14.8) PLATELET COUNT 241 K/uL (150-400) NEUTROPHIL % 91.6 H % (50-75) LYMPH % 4.9 L % (25-40) MONO % 3.3 % (3-14) EOSINOPHIL % 0.2 % (0-4) BASOPHIL % 0 % (0-2) POLY % 89 H % (50-75) BAND % 3 % (0-8) LYMPH 7 L % (25-40) MONO 1 L % (3-14) EOSINOPHIL % 0 % (0-4) BASOPHIL % 0 % (0-2) METAMYELOCYTE % 0 % (0-1) MYELOCYTE 0 % (0-1) OTHER CELL TYPE 0 ANISOCYTOSIS 1+ PT with INR: (DENILSON: 05/15/2017 03:35) ( [facility] 05/15/2017 04:04) Final results Test Result Flag Units (Reference) INR 2.2 H (0.8-1.2) Low Intensity Therapy: INR 1.5-2.0 PT range 18.5-23.1Mod.Intensity Therapy: INR 2.0-3.0 PT range 23.1-31.5High Intensity Therapy: INR 2.5-3.5 PT range 27.4-35.5High Intensity Therapy 2: INR 3.0-4.0 PT range 31.5-39.3 APTT 35 H SECONDS (24-34) CPK: (DENILSON: 05/15/2017 07:15) ( [facility] 05/15/2017 07:35) Final results Test Result Flag Units (Reference) CPK 213 U/L (24-260) Lactate, Serum: (DENILSON: 05/15/2017 03:35) ( [facility] 05/15/2017 04:05) Final results Test Result Flag Units (Reference) LACTIC ACID 1.9 mmol/L (0.4-2.0) BNP: (DENILSON: 05/15/2017 03:35) ( [facility] 05/15/2017 04:04) Final results Test Result Flag Units (Reference) B-TYPE NATRIURETIC PEPTIDE 34.8 pg/ml (5-100) CMP: (DENILSON: 05/15/2017 03:35) ( [facility] 05/15/2017 04:48) Final results Test Result Flag Units (Reference) GLUCOSE 249 H mg/dL (70-110) BUN 18 mg/dL (7-18) CREATININE 1.3 mg/dL (0.6-1.3) Estimated GFR >60 mL/min Estimated GFR- >60 mL/min Note: Persistent reduction over 3 months in eGFR<60 mL/min/1.73 m2 defines CKD. Patients with eGFR values>=60 mL/min/1.73 m2 may also have CKD if evidence ofpersistent proteinuria. Additional information may be foundat www.kidney.org. SODIUM 138 mmol/L (136-145) POTASSIUM 3.9 mmol/L (3.5-5.1) CHLORIDE 100 mmol/L (98-107) CARBON DIOXIDE 27 mmol/L (21-32) CALCIUM 9.2 mg/dL (8.5-10.1) TOTAL PROTEIN 7.9 g/dL (6.4-8.2) ALBUMIN 3.5 g/dL (3.3-5.0) BILIRUBIN, TOTAL 0.7 mg/dL (0.0-1.0) ALKALINE PHOSPHATASE 102 U/L (46-116) AST (SGOT) 19 U/L (15-37) ALT (SGPT) 46 U/L (12-78) CPK 276 H U/L (24-260) TROPONIN I 0.03 ng/mL (0.00-1.5) TROPONIN REFERENCE RANGE:<0.1 NEGATIVE0.1-1.5 INDETERMINANT>1.5 POSITIVE CK-MB 1.8 ng/mL (0.5-3.2) %CKMB 0.7 % (0.0-4.0) . PROGRESS AND PROCEDURES Course of Care: Patient is stable. Discussed case with hospitalist, (Aramis - he saw the patient in the ER). Reviewed test results and need for additional work-up. Agreed upon treatment plan and decision to admit. Patient/family counseled. Old medical records reviewed. Disposition: Admitted. CLINICAL IMPRESSION Chest pain. Bilateral pedal edema. Cellulitis of the left lower leg. (Electronically signed by Jose Roberto Kimbrough MD 05/15/2017 9:14)
--- NOTE | 2017-05-15 04:41 | ED ORDER SUMMARY ---
..... Patient: RIAN EASLEY OrderSheet [facility] VisitID: [id number] [place] [address] 41y, M Registration Date/Time: 05/15/2017 ORDER SHEET Weight: 181.4 kg (stated) Allergies: No Known Drug Allergy GENERAL ORDERS: Chest 1V Urgent (03:05/15/2017 Buddy CORCORAN) (Ack 3:21 CHagerty ER Surgical Specialist) (3:36 MCampbell) Garment Sorter (Continuous) (03:05/15/2017 Buddy CORCORAN) (3:51 RCollier R.N.) CBC w Diff Urgent (03:05/15/2017 Buddy CORCORAN) (Ack 3:21 CHagerty ER Surgical Specialist) (3:45 RCollier R.N.) CMP Urgent (03:05/15/2017 Buddy CORCORAN) (Ack 3:21 CHagerty ER Surgical Specialist) (3:45 RCollier R.N.) PT with INR Urgent (03:05/15/2017 Buddy CORCORAN) (Ack 3:21 CHagerty ER Surgical Specialist) (3:45 RCollier R.N.) PTT Urgent (03:05/15/2017 Buddy CORCORAN) (Ack 3:21 CHagerty ER Surgical Specialist) (3:45 RCollier R.N.) CPK Urgent (03:05/15/2017 Buddy CORCORAN) (Ack 3:21 CHagerty ER Surgical Specialist) (3:45 RCollier R.N.) Troponin-I Urgent (03:05/15/2017 Buddy CORCORAN) (Ack 3:21 CHagerty ER Surgical Specialist) (3:45 RCollier R.N.) BNP Urgent (03:05/15/2017 Buddy CORCORAN) (Ack 3:21 CHagerty ER Surgical Specialist) (3:45 RCollier R.N.) Pulse oximeter (03:05/15/2017 Buddy CORCORAN) (3:30 ALawrence ER Tech1) EKG - ER Stat (03:05/15/2017 Buddy CORCORAN) (Ack 3:22 CHagerty ER Surgical Specialist) (3:30 ALawrence ER Tech1) US Venous Left Urgent (03:27 05/15/2017 Buddy CORCORAN) (Ack 3:28 Tim ER Surgical Specialist) (4:13 CHagdavid ER Surgical Specialist) Blood Culture (No) (N/A) Urgent (03:27 05/15/2017 Buddy CORCORAN) (Ack 3:28 Tim ER Surgical Specialist) (4:22 RCollier R.N.) Lactate, Serum Urgent (03:27 05/15/2017 Buddy CORCORAN) (Ack 3:28 Tim ER Surgical Specialist) (3:45 RCollier R.N.) MEDICATION ORDERS: IV FLUIDS: IV Saline Lock (03:20 05/15/2017 Buddy CORCORAN) (Ack 3:27 RCollier R.N.) IV NS : initial bolus 500 mL (1000 mL/hr), then 125 mL/hr for 4h (NOW); Urgent (04:04 05/15/2017 Buddy CORCORAN) (4:22 RCollier R.N.) Vancomycin IV 2 gm/500 mL (NOW) (04:21 05/15/2017 Buddy CORCORAN) (Ack 4:22 RCollier R.N.) (4:38 RCollier R.N.) ORDER SHEET NOTES: [Electronically signed by Colleen Cool R.N. (05:55 05/15/2017)] [Electronically signed by Jose Roberto Kimbrough MD (09:14 05/15/2017)] [Electronically locked/signed by Colleen Cool R.N. (05:55 05/15/2017)]
--- NOTE | 2017-05-15 04:41 | ED CLINICAL REPORT ---
Clinical Report - Physicians/Mid Levels [facility] [address] [place] [address] 05/15/2017 3:11 [id number] Time Seen: 03:19. Arrived- By private vehicle. Historian- patient. HISTORY OF PRESENT ILLNESS Chief Complaint: LOWER EXTREMITY PAIN. Severity is described as being .it has become recently worse. The quality is noted to be "pain". This started last night and is still present. It was abrupt in onset and has been constant. Symptoms located in the area of the left leg. The patient has had redness. He has had pre-existing severe swelling of the right lower leg and severe swelling of the left lower leg, (chronically). Patient denies a recent injury. Similar symptoms previously: Many times. Diagnosis: infection. REVIEW OF SYSTEMS No chills, sweats, cough, difficulty breathing or palpitations. No abdominal pain, black stools, bloody stools, nausea or vomiting. No urinary problems. He has had mild, pressure-like central chest pain (at about midnight), currently gone. He has had diarrhea. All systems otherwise negative, except as recorded above. PAST HISTORY Problems: Hypertension. DVT - Deep Venous Thrombosis. Lymphedema. Diabetes Mellitus. Additional Surgeries: Fracture Repair. Tonsillectomy. Medications: SUMAtriptan Succinate Oral, at bedtime. Amitriptyline HCl Oral. Furosemide Oral. Metoprolol Tartrate Oral. NovoLOG Subcutaneous. Omeprazole Oral. Plavix Oral. Pravastatin Sodium Oral. Treceba- diabetes medication . Victoza Subcutaneous. Warfarin Sodium Oral (Tablet 10 mg), daily. Allergies: No Known Drug Allergy. SOCIAL HISTORY Never smoker. No alcohol use or drug use. FAMILY HISTORY Denies family medical history. ADDITIONAL NOTES The nursing notes have been reviewed. PHYSICAL EXAM Vital Signs: 05/15/2017 03:20 BP: 179/100. HR: 138. RR: 18. O2 saturation: 98%. Temp: 98.8 F. Davis-Triplett pain scale: 4/10. Have been reviewed. Appearance: Alert. He is morbidly obese. Eyes: Pupils equal, round and reactive to light. ENT: Pharynx normal. Neck: Normal inspection. Neck supple. No JVD. CVS: Normal heart rate and rhythm. Heart sounds normal. Respiratory: No respiratory distress. Breath sounds normal. Abdomen: Soft and nontender. No organomegaly. Back: ROM normal. Skin: Skin warm and dry. Extremities: Swelling, warmth, tenderness and erythema present in the left leg. 3+ pitting edema of the right lower extremity involving the ankle and lower leg; 4+ pitting edema of the left lower extremity involving the ankle and lower leg. LABS, X-RAYS, AND EKG EKG: Rate: 132. Non-specific ST segment / T wave abnormalities. Prior EKG unavailable. The study has been independently viewed by me. Chest X-ray: No acute disease. The X-rays were interpreted by the radiologist and contemporaneously by me. Lower Extremity Sonography: IMPRESSION: 1. Partially limited study. 2. Negative venous ultrasound of the left lower extremity. The study was interpreted by the radiologist and contemporaneously by me. Laboratory Tests: DIFFERENTIAL-MANUAL: (DENILSON: 05/15/2017 03:35) ( MsgRcvd 05/15/2017 05:21) Final results Test Result Flag Units (Reference) WHITE BLOOD COUNT 25.0 H K/uL (4.5-11.5) RED BLOOD COUNT 5.07 M/uL (4.50-5.90) HEMOGLOBIN 14.4 gm/dL (13.5-17.5) HEMATOCRIT 45.2 % (41.0-53.0) MEAN CELL VOLUME 89 fL (80-100) MEAN CORPUSCULAR HGB 28 pg (26-34) MEAN CORPUSCULAR HGB CONC 32 g/dL (31-37) RED CELL DISTRIBUTION WIDTH 16.8 H % (11.6-14.8) PLATELET COUNT 241 K/uL (150-400) NEUTROPHIL % 91.6 H % (50-75) LYMPH % 4.9 L % (25-40) MONO % 3.3 % (3-14) EOSINOPHIL % 0.2 % (0-4) BASOPHIL % 0 % (0-2) POLY % 89 H % (50-75) BAND % 3 % (0-8) LYMPH 7 L % (25-40) MONO 1 L % (3-14) EOSINOPHIL % 0 % (0-4) BASOPHIL % 0 % (0-2) METAMYELOCYTE % 0 % (0-1) MYELOCYTE 0 % (0-1) OTHER CELL TYPE 0 ANISOCYTOSIS 1+ PT with INR: (DENILSON: 05/15/2017 03:35) ( [facility] 05/15/2017 04:04) Final results Test Result Flag Units (Reference) INR 2.2 H (0.8-1.2) Low Intensity Therapy: INR 1.5-2.0 PT range 18.5-23.1Mod.Intensity Therapy: INR 2.0-3.0 PT range 23.1-31.5High Intensity Therapy: INR 2.5-3.5 PT range 27.4-35.5High Intensity Therapy 2: INR 3.0-4.0 PT range 31.5-39.3 APTT 35 H SECONDS (24-34) CPK: (DENILSON: 05/15/2017 07:15) ( [facility] 05/15/2017 07:35) Final results Test Result Flag Units (Reference) CPK 213 U/L (24-260) Lactate, Serum: (DENILSON: 05/15/2017 03:35) ( [facility] 05/15/2017 04:05) Final results Test Result Flag Units (Reference) LACTIC ACID 1.9 mmol/L (0.4-2.0) BNP: (DENILSON: 05/15/2017 03:35) ( [facility] 05/15/2017 04:04) Final results Test Result Flag Units (Reference) B-TYPE NATRIURETIC PEPTIDE 34.8 pg/ml (5-100) CMP: (DENILSON: 05/15/2017 03:35) ( [facility] 05/15/2017 04:48) Final results Test Result Flag Units (Reference) GLUCOSE 249 H mg/dL (70-110) BUN 18 mg/dL (7-18) CREATININE 1.3 mg/dL (0.6-1.3) Estimated GFR >60 mL/min Estimated GFR- >60 mL/min Note: Persistent reduction over 3 months in eGFR<60 mL/min/1.73 m2 defines CKD. Patients with eGFR values>=60 mL/min/1.73 m2 may also have CKD if evidence ofpersistent proteinuria. Additional information may be foundat www.kidney.org. SODIUM 138 mmol/L (136-145) POTASSIUM 3.9 mmol/L (3.5-5.1) CHLORIDE 100 mmol/L (98-107) CARBON DIOXIDE 27 mmol/L (21-32) CALCIUM 9.2 mg/dL (8.5-10.1) TOTAL PROTEIN 7.9 g/dL (6.4-8.2) ALBUMIN 3.5 g/dL (3.3-5.0) BILIRUBIN, TOTAL 0.7 mg/dL (0.0-1.0) ALKALINE PHOSPHATASE 102 U/L (46-116) AST (SGOT) 19 U/L (15-37) ALT (SGPT) 46 U/L (12-78) CPK 276 H U/L (24-260) TROPONIN I 0.03 ng/mL (0.00-1.5) TROPONIN REFERENCE RANGE:<0.1 NEGATIVE0.1-1.5 INDETERMINANT>1.5 POSITIVE CK-MB 1.8 ng/mL (0.5-3.2) %CKMB 0.7 % (0.0-4.0) . PROGRESS AND PROCEDURES Course of Care: Patient is stable. Discussed case with hospitalist, (Aramis - he saw the patient in the ER). Reviewed test results and need for additional work-up. Agreed upon treatment plan and decision to admit. Patient/family counseled. Old medical records reviewed. Disposition: Admitted. CLINICAL IMPRESSION Chest pain. Bilateral pedal edema. Cellulitis of the left lower leg. (Electronically signed by Jose Roberto Kimbrough MD 05/15/2017 9:14)
[2017-05-15] MEDS ORDERED: VICTOZA18 MG/3 ML SC (05:25)
[2017-05-15] MEDS ORDERED: NOVOLOG PE100 UNITS/ SC (05:26)
[2017-05-15] MEDS ORDERED: TRESIBA FL200 UNIT/M SC (05:28)
[2017-05-15] MEDS ORDERED: PLAVIX75 MG PO (05:29)
[2017-05-15] MEDS ORDERED: PRAVASTATIN SOD40 MG PO (05:31)
[2017-05-15] MEDS ORDERED: ALBUTEROL HFA60 DOSE IN (05:31)
[2017-05-15] MEDS ORDERED: FUROSEMIDE40 MG PO (05:33)
[2017-05-15 06:09] VITALS: BP 162/91
--- NOTE | 2017-05-15 06:54 | DIAGNOSTIC IMAGING REPORT ---
PROCEDURE: US VENOUS - LEFT EXT INDICATION: SWELLING TECHNIQUE: Color Doppler duplex imaging of the deep and superficial venous system without and with compression. COMPARISON: None. FINDINGS: Study is partially limited due to body habitus and there is marked leg which limits evaluation of the left veins. Allowing for and superficial venous system of the left lower extremity is within normal limits. There is no evidence of deep vein thrombosis or superficial thrombophlebitis. IMPRESSION: 1. Partially limited study. 2. Negative venous ultrasound of the left lower extremity.
--- NOTE | 2017-05-15 06:56 | DIAGNOSTIC IMAGING REPORT ---
PROCEDURE: XR CHEST 1 VIEW INDICATION: LEG SWELLING TECHNIQUE: Portable AP view (0330 hours). COMPARISON: None. FINDINGS: Allowing for the degree of inspiration, lungs are clear. Heart and mediastinum are normal. Thorax is normal. IMPRESSION: 1. Negative chest.
--- NOTE | 2017-05-15 09:14 | ED MAR SUMMARY ---
..... Medication Administration Record [facility] [address] [place] [address] Patient: RIAN EASLEY Visit ID: [id number] 41y, M Weight: 181.4 kg Height/Length: 77 in BMI: 47.5 ALLERGIES: No Known Drug Allergy Start 04:14 05/15/2017 Colleen Cool RDavid, Continued Upon Disposition 05:44 05/15/2017 Colleen Cool R.N. Medication Administered: IV NS (SALINE), Dose: IV Fluids, Rate: 125 mL/hr, Bolus: 500 mL over 30 minute(s), Dispensed: 1000 mL bag, Site: #1 right forearm. Medication Ordered: IV NS : initial bolus 500 mL (1000 mL/hr), then 125 mL/hr for 4h (NOW); Urgent. Start 04:35 05/15/2017 Colleen Cool RDavid, Continued Upon Disposition 05:44 05/15/2017 Colleen Cool RJenN. Medication Administered: VANCOMYCIN [IVPB], Dose: 2 gm IVPB over 2 hour(s), Rate: 270 mL/hr, Dispensed: 500 mL bag, Site: #1 right forearm. Medication Ordered: Vancomycin IV 2 gm/500 mL (NOW).
--- NOTE | 2017-05-15 09:14 | ED DISCHARGE INSTRUCTIONS ---
Patient: RIAN EASLEY [place] General Instructions [facility] VisitID: [id number] [address] [place] [address] 41y, M Registration Date/Time: 05/15/2017 Chest pain. Bilateral pedal edema. Cellulitis of the left lower leg. (Electronically signed by Jose Roberto Kimbrough MD 05/15/2017 9:14)
--- NOTE | 2017-05-15 09:14 | ED MED RECONCILIATION SUMMARY ---
Patient: RIAN EASLEY Medication Reconciliation Report [facility] VisitID: [id number] [address] [place] [address] 41y, M Registration Date/Time: 05/15/2017 Weight: 181.4 kg Height/Length: 77 in. BMI: 47.5 ALLERGIES: No Known Drug Allergy The patient's Home Medications are listed below: THE FOLLOWING MEDICATIONS NEED TO BE RECONCILED: Amitriptyline HCl Oral Furosemide Oral Metoprolol Tartrate Oral NovoLOG Subcutaneous Omeprazole Oral Plavix Oral Pravastatin Sodium Oral SUMAtriptan Succinate Oral, at bedtime Treceba- diabetes medication Victoza Subcutaneous Warfarin Sodium Oral (10 mg), daily The source(s) of the original Home Medication information: Not obtained. The following Medications were given to the patient in the Emergency Department: IV NS IV Fluids bolus 500 mL over 30 minute(s), then 125 mL/hr, administered: 05/15/2017 4:14:00 AM Vancomycin [IVPB] IVPB bolus 0, then 2 gm 270 mL/hr, administered: 05/15/2017 4:35:00 AM The following Medications were prescribed to the patient: None.
--- NOTE | 2017-05-15 09:14 | ED MED RECONCILIATION SUMMARY ---
Patient: RIAN EASLEY Medication Reconciliation Report [facility] VisitID: [id number] [address] [place] [address] 41y, M Registration Date/Time: 05/15/2017 Weight: 181.4 kg Height/Length: 77 in. BMI: 47.5 ALLERGIES: No Known Drug Allergy The patient's Home Medications are listed below: THE FOLLOWING MEDICATIONS NEED TO BE RECONCILED: Amitriptyline HCl Oral Furosemide Oral Metoprolol Tartrate Oral NovoLOG Subcutaneous Omeprazole Oral Plavix Oral Pravastatin Sodium Oral SUMAtriptan Succinate Oral, at bedtime Treceba- diabetes medication Victoza Subcutaneous Warfarin Sodium Oral (10 mg), daily The source(s) of the original Home Medication information: Not obtained. The following Medications were given to the patient in the Emergency Department: IV NS IV Fluids bolus 500 mL over 30 minute(s), then 125 mL/hr, administered: 05/15/2017 4:14:00 AM Vancomycin [IVPB] IVPB bolus 0, then 2 gm 270 mL/hr, administered: 05/15/2017 4:35:00 AM The following Medications were prescribed to the patient: None.
--- NOTE | 2017-05-15 09:14 | ED DISCHARGE INSTRUCTIONS ---
Patient: RIAN EASLEY [place] General Instructions [facility] VisitID: [id number] [address] [place] [address] 41y, M Registration Date/Time: 05/15/2017 Chest pain. Bilateral pedal edema. Cellulitis of the left lower leg. (Electronically signed by Jose Roberto Kimbrough MD 05/15/2017 9:14)
--- NOTE | 2017-05-15 09:14 | ED MAR SUMMARY ---
..... Medication Administration Record [facility] [address] [place] [address] Patient: RIAN EASLEY Visit ID: [id number] 41y, M Weight: 181.4 kg Height/Length: 77 in BMI: 47.5 ALLERGIES: No Known Drug Allergy Start 04:14 05/15/2017 Colleen Cool RDavid, Continued Upon Disposition 05:44 05/15/2017 Colleen Cool R.N. Medication Administered: IV NS (SALINE), Dose: IV Fluids, Rate: 125 mL/hr, Bolus: 500 mL over 30 minute(s), Dispensed: 1000 mL bag, Site: #1 right forearm. Medication Ordered: IV NS : initial bolus 500 mL (1000 mL/hr), then 125 mL/hr for 4h (NOW); Urgent. Start 04:35 05/15/2017 Colleen Cool RDavid, Continued Upon Disposition 05:44 05/15/2017 Colleen Cool RJenN. Medication Administered: VANCOMYCIN [IVPB], Dose: 2 gm IVPB over 2 hour(s), Rate: 270 mL/hr, Dispensed: 500 mL bag, Site: #1 right forearm. Medication Ordered: Vancomycin IV 2 gm/500 mL (NOW).
[2017-05-15 10:13] VITALS: BP 154/76
[2017-05-15] MEDS ORDERED: IMITREX50 MG (12:03)
[2017-05-15] MEDS ORDERED: AMITRIPTYLINE H25 MG PO (12:15)
[2017-05-15] MEDS ORDERED: COUMADIN10 MG PO (14:11)
[2017-05-15 15:06] VITALS: BP 163/96
[2017-05-15 18:20] VITALS: BP 140/93
[2017-05-16] VITALS (9 sets, daily range): BP systolic 151–209; BP diastolic 75–102
[2017-05-16] MEDS ORDERED: HUMALIN R100 UNITS/ SC (05:38)
--- NOTE | 2017-05-16 06:26 | Progress Note ---
Subjective General Note Date: May 16, 2017 Admission Date: May 15, 2017 Hospital Day: 2 PCP: Gelacio Beard M.D. Status: Inpatient, ACU Advanced Directive: FULL CODE Room: 211 Admission History: The patient is a 46-year-old white male with a significant past medical history of type 2 diabetes mellitus, lymphedema of lower extremities, recurrent cellulitis, DVT, morbid obesity, who presented to [facility] emergency department on the day of admission secondary to complaints of pain, redness, swelling of left lower leg of 2 days duration. [facility] ER evaluation was consistent with cellulitis involving left lower leg. Secondary to the above, the patient was admitted by Ag Self M.D. for further evaluation and treatment. For other history present illness, past medical history, family history, social history, review of systems, and admission physical examination please see the patient's history and physical examination and ER visit note in the patient's medical record. Subjective: The patient states he is doing well today. No significant pain left lower extremity. Redness improved. Patient requests: None Medications and Allergies Medications Current Medications Sig/Perlita Start time Last Medication Dose Route Stop Time Status Admin Clarify Med Order See Dose 1530 05/16 1530 AC Insts (1) IV 05/16 1531 Patient Own See Dose QAM 05/16 0900 AC Medication Insts (2) SC Lisinopril 20 MG DAILY 05/16 0300 AC 05/16 PO 0247 Amitriptyline HCl 25 MG QHS 05/15 2100 AC 05/15 PO 2113 Insulin Glargine 85 UNITS QHS 05/15 2100 AC 05/15 SC 2119 Atorvastatin Calcium 40 MG QPM 05/15 1800 AC 05/15 PO 1833 Insulin Human Lispro See Dose ACHS 05/15 1800 AC 05/15 Insts (3) SC 2113 Vancomycin HCl 2,000 MG 0400,1600 / 1600 AC 05/16 Sodium Chloride 500 ML IV 0356 Warfarin Sodium 10 MG DAILY@1400 /15 1600 AC 05/15 PO 1705 Clopidogrel Bisulfate 75 MG DAILY 05/15 1231 AC 05/15 PO 1346 Sumatriptan Succinate 6 MG .[MR IN 1 HR] PRN 05/15 1230 AC 05/16 SC 0247 Pantoprazole Sodium 40 MG DAILY@0600 05/15 0600 AC 05/16 Sesquihydrate PO 0505 Acetaminophen 650 MG Q6H PRN 05/15 0500 AC 05/15 PO 2339 Ondansetron HCl 4 MG Q6H PRN 05/15 0500 AC IV Sodium Chloride 1,000 ML ASDIRECTED 05/15 500 AC IV Vancomycin HCl See Dose .[PER PHARMACY] 05/15 050 AC Insts (4) IV Dose Instructions: (1)Clarify Med Order: VANCOMYCIN TROUGH (2)Patient Own Medication: VICTOZA INJ (3)Insulin Human Lispro: HIGH DOSE: ACCUCHECK AND SLIDING SCALE >>To change sliding scale DISCONTINUE this order and enter a NEW order. Thanks< (4)Vancomycin HCl: DOSING PER PHARMACY Allergies Coded Allergies: NKA (05/15/17) Reconcile Medications Scheduled Medications Albuterol Sulfate (Albuterol Hfa) 60 DOSE INH 2 PUFF IN Q4H (Reported) Amitriptyline HCl (Amitriptyline HCl 25 MG) 25 MG TAB 25 MG PO QHS (Reported) Clopidogrel Bisulfate (Plavix 75 MG) 75 MG TAB 75 MG PO DAILY (Reported) Insulin Aspart, Human Analog (NovoLOG 100 UNITS/ML PEN) 100 UNITS/ML INJ 25 UNITS SC PC diabetes (Reported) Insulin Degludec (Tresiba Flextouch) 200 UNIT/ML INJ 85 UNITS SC DAILY diabetes (Reported) Last Taken: 05/14/17 0800 Insulin Reg (Human) (HumaLIN R 100 UNITS/ML) 100 UNITS/ML INJ 4 UNITS SC AC ( Reported) Liraglutide (Victoza) 18 MG/3 ML INJ 1.8 SC DAILY (Reported) Pravastatin Sodium 40 MG TAB 40 MG PO HS (Reported) Warfarin Sodium (Coumadin) 10 MG TAB 10 MG PO DAILY (Reported) Scheduled PRN Medications Furosemide (Furosemide 40 MG) 40 MG TAB 40 MG PO DAILY PRN leg swelling ( Reported) Sumatriptan Succinate (Imitrex) 50 MG TAB 50 MG PRN FOR HEADACHE (Reported) Physical Exam Vital Signs / I&Os Vital Signs Date Time Temp Pulse Resp B/P Pulse O2 O2 Flow FiO2 Ox Delivery Rate 05/16 0508 156/98 05/16 0357 174/92 05/16 0254 98.6 83 18 181/102 95 Room Air 05/16 0007 98.8 96 18 209/96 97 Room Air 05/15 2358 Room Air 05/15 1820 98.8 100 16 140/93 97 Room Air 05/15 1530 Room Air 05/15 1506 163/96 05/15 1433 97.9 99 16 98 Room Air 05/15 1130 Room Air 05/15 1013 99.1 102 20 154/76 94 I&O 05/16 0000 05/15 1600 05/15 0800 Intake Total 1810 2188 0 Output Total 750 0 Balance 1810 1438 0 General Appearance Alert, Oriented X3, Cooperative, No acute distress Lungs Clear to auscultation Cardiovascular Regular rate and rhythm, Normal S1 and S2, No murmurs, gallops, rubs Abdomen Normal bowel sounds, Soft, No tenderness Extremities No cyanosis, No clubbing, Lower extremity edema unchanged. Erythema involving left lower leg improved. Neurological Cranial nerves intact, Strength 5/5 x4 ext's, No lateralizing signs Psych/Mental Status Mental status normal, Mood normal LAB Results Laboratory Tests 05/16 05/16 05/15 0557 0557 1300 Chemistry Plasma Sodium (136 - 145 mmol/L) 141 Plasma Potassium (3.5 - 5.1 mmol/L) 3.8 Plasma Chloride (98 - 107 mmol/L) 105 CO2 (Enzymatic) (21 - 32 mmol/L) 29 BUN (7 - 18 mg/dL) 11 Creatinine (0.6 - 1.3 mg/dL) 0.9 Est GFR ( Amer) (mL/min) >60 Est GFR (Non-Af Amer) (mL/min) >60 Glucose (70 - 110 mg/dL) 196 Hemoglobin A1c % (4.5 - 6.2 %) 9.2 Plasma Calcium (8.5 - 10.1 mg/dL) 8.5 Creatine Kinase (24 - 260 U/L) 198 Coagulation INR (0.8 - 1.2) 1.8 Hematology WBC (4.5 - 11.5 K/uL) 9.7 RBC (4.50 - 5.90 M/uL) 4.43 Hgb (13.5 - 17.5 gm/dL) 12.8 Hct (41.0 - 53.0 %) 39.8 MCV (80 - 100 fL) 90 MCH (26 - 34 pg) 29 RDW (11.6 - 14.8 %) 17.3 Neut % (Auto) (50 - 75 %) 81.9 Lymph % (Auto) (25 - 40 %) 8.8 Floyd % (Auto) (3 - 14 %) 8.3 Eos % (Auto) (0 - 4 %) 0.7 Baso % (Auto) (0 - 2 %) 0.3 Plt Count, EDTA (150 - 400 K/uL) 187 PUBS MCHC (31 - 37 g/dL) 32 Assessment and Plan Problem List 1. Cellulitis and abscess of leg Status Acute Onset Date Unknown Plan -WBC improved. -WBC 9.7 -Afebrile -Continue vancomycin -Monitor 2. Obesity Status Chronic Onset Date Unknown Plan -Encourage outpatient follow-up, weight reduction program 3. Diabetes mellitus Status Chronic Onset Date Unknown Plan -Blood sugar remains elevated -Fasting blood sugar 196 -Hemoglobin A1c significantly elevated at 9.2% -Continue long-acting insulin, insulin sliding scale -Monitor 4. Rhabdomyolysis Status Acute Onset Date Unknown Plan -Resolved -CPK 198 5. Chronic anticoagulation Status Chronic Onset Date Unknown Plan -INR slightly low 1.8 -Continue Coumadin at current dosage schedule -Monitor with adjustments in therapy based on INR findings 6. Hypertension Status Chronic Onset Date Unknown Plan -Patient with history of hypertension but on no outpatient medications -Blood pressure elevated last p.m. -Patient started on lisinopril 20 mg by mouth daily -Low-salt diet -Monitor Current status: Fair, improved Anticipated discharge date: Anticipated discharge in 2-3 days Anticipated discharge placement: Home Patient care time: Time in chart review, patient interview, physical exam, CPOE, and care documentation: 35 mins Visit to patient today: 1 Complexity of care: High DVT prophylaxis: Coumadin E&M Codes Rounding: Inpt-High/71061
[2017-05-17 03:28] VITALS: BP 139/73
--- NOTE | 2017-05-17 06:45 | Progress Note ---
Subjective General Note Date: May 17, 2017 Admission Date: May 15, 2017 Hospital Day: 3 PCP: Gelacio Beard M.D. Status: Inpatient, ACU Advanced Directive: FULL CODE Room: 211 Admission History: The patient is a 46-year-old white male with a significant past medical history of type 2 diabetes mellitus, lymphedema of lower extremities, recurrent cellulitis, DVT, morbid obesity, who presented to [facility] emergency department on the day of admission secondary to complaints of pain, redness, swelling of left lower leg of 2 days duration. [facility] ER evaluation was consistent with cellulitis involving left lower leg. Secondary to the above, the patient was admitted by Ag Self M.D. for further evaluation and treatment. For other history present illness, past medical history, family history, social history, review of systems, and admission physical examination please see the patient's history and physical examination and ER visit note in the patient's medical record. Subjective: The patient states he is doing well today. Mild persistent pain left lower leg. Erythema improved. Persistent swelling but stable Patient requests: None other than Blainel for itching Medications and Allergies Medications Current Medications Sig/Perlita Start time Last Medication Dose Route Stop Time Status Admin Clarify Med Order See Dose 0830 05/18 0830 AC Insts (1) IV 05/18 0831 Diphenhydramine HCl 25 MG Q6H PRN 05/17 0300 AC 05/17 PO 0258 Vancomycin HCl 1,500 MG 0100,0900,1700 05/16 1700 AC 05/17 Sodium Chloride 500 ML IV 0050 Patient Own See Dose QAM 05/16 0900 AC Medication Insts (2) SC Lisinopril 20 MG DAILY 05/16 0300 AC 05/16 PO 0839 Amitriptyline HCl 25 MG QHS 05/15 2100 AC 05/16 PO 2148 Insulin Glargine 85 UNITS QHS 05/15 2100 AC 05/16 SC 2149 Atorvastatin Calcium 40 MG QPM 05/15 1800 AC 05/16 PO 1729 Insulin Human Lispro See Dose ACHS 05/15 1800 AC 05/16 Insts (3) SC 2149 Warfarin Sodium 10 MG DAILY@1400 06/ 1600 AC 05/16 PO 1323 Clopidogrel Bisulfate 75 MG DAILY 05/15 1231 AC 05/16 PO 0838 Sumatriptan Succinate 6 MG .[MR IN 1 HR] PRN 05/15 1230 AC 05/16 SC 0247 Pantoprazole Sodium 40 MG DAILY@0600 05/15 0600 AC 05/17 Sesquihydrate PO 0603 Acetaminophen 650 MG Q6H PRN 05/15 0500 AC 05/17 PO 0257 Ondansetron HCl 4 MG Q6H PRN 05/15 0500 AC IV Sodium Chloride 1,000 ML ASDIRECTED 05/15 0500 AC 05/17 IV 0050 Vancomycin HCl See Dose .[PER PHARMACY] 05/15 0500 AC Insts (4) IV Dose Instructions: (1)Clarify Med Order: VANCOMYCIN TROUGH (2)Patient Own Medication: VICTOZA INJ (3)Insulin Human Lispro: HIGH DOSE: ACCUCHECK AND SLIDING SCALE >>To change sliding scale DISCONTINUE this order and enter a NEW order. Thanks< (4)Vancomycin HCl: DOSING PER PHARMACY Allergies Coded Allergies: NKA (05/15/17) Reconcile Medications Scheduled Medications Albuterol Sulfate (Albuterol Hfa) 60 DOSE INH 2 PUFF IN Q4H (Reported) Amitriptyline HCl (Amitriptyline HCl 25 MG) 25 MG TAB 25 MG PO QHS (Reported) Clopidogrel Bisulfate (Plavix 75 MG) 75 MG TAB 75 MG PO DAILY (Reported) Insulin Aspart, Human Analog (NovoLOG 100 UNITS/ML PEN) 100 UNITS/ML INJ 25 UNITS SC PC diabetes (Reported) Insulin Degludec (Tresiba Flextouch) 200 UNIT/ML INJ 85 UNITS SC DAILY diabetes (Reported) Last Taken: 05/14/17 0800 Insulin Reg (Human) (HumaLIN R 100 UNITS/ML) 100 UNITS/ML INJ 4 UNITS SC AC ( Reported) Liraglutide (Victoza) 18 MG/3 ML INJ 1.8 SC DAILY (Reported) Pravastatin Sodium 40 MG TAB 40 MG PO HS (Reported) Warfarin Sodium (Coumadin) 10 MG TAB 10 MG PO DAILY (Reported) Scheduled PRN Medications Furosemide (Furosemide 40 MG) 40 MG TAB 40 MG PO DAILY PRN leg swelling ( Reported) Sumatriptan Succinate (Imitrex) 50 MG TAB 50 MG PRN FOR HEADACHE (Reported) Physical Exam Vital Signs / I&Os Vital Signs Date Time Temp Pulse Resp B/P Pulse O2 O2 Flow FiO2 Ox Delivery Rate 05/17 0328 98.2 83 18 139/73 98 Room Air 05/17 0045 Room Air 05/16 2308 98.1 90 18 173/88 98 Room Air 05/16 1820 99.3 97 18 172/80 98 Room Air 05/16 1650 Room Air 05/16 1450 97.7 94 18 167/97 96 Room Air 05/16 1005 98.4 86 18 170/75 97 05/16 0800 Room Air 05/16 0716 97.5 72 18 151/82 96 I&O 05/17 0000 05/16 1600 05/16 0800 Intake Total 5858 845 0544 Output Total 250 1650 Balance 1408 480 -162 General Appearance Alert, Oriented X3, Cooperative, No acute distress Lungs Clear to auscultation, Normal air movement Cardiovascular Regular rate and rhythm, Normal S1 and S2, No murmurs, gallops, rubs Abdomen Normal bowel sounds, Soft Extremities No cyanosis, No clubbing, edema left lower leg unchanged. Persistent erythema which is slightly improved. No significant induration. Neurological Cranial nerves intact, No lateralizing signs Psych/Mental Status Mental status normal, Mood normal LAB Results Laboratory Tests 05/17 05/16 0620 1527 Chemistry Plasma Sodium Pending Plasma Potassium Pending Plasma Chloride Pending CO2 (Enzymatic) Pending BUN Pending Creatinine Pending Est GFR ( Amer) Pending Est GFR (Non-Af Amer) Pending Glucose Pending Plasma Calcium Pending Coagulation INR Pending Toxicology Vancomycin Trough (10.0 - 20.0 ug/mL) 6.7 Assessment and Plan Problem List 1. Cellulitis and abscess of leg Status Acute Onset Date Unknown Plan -Slow improvement -Decreased erythema -Afebrile, normal white count -Continue vancomycin with consideration of switching to oral medications in a.m. -Monitor 2. Obesity Status Chronic Onset Date Unknown Plan -Patient with long-standing history of obesity -Encourage weight reduction program post hospitalization -We'll recommend diabetic education post discharge 3. Diabetes mellitus Status Chronic Onset Date Unknown Plan -Persistent hyperglycemia -We will increase long-acting insulin to 100 units subcutaneous daily at bedtime (increasing 15 units per day) -Continue high-dose sliding scale -Monitor 4. Rhabdomyolysis Status Acute Onset Date Unknown Plan -Resolved 5. Chronic anticoagulation Status Chronic Onset Date Unknown Plan -INR therapeutic at 2.0 -Continue present Coumadin regimen -Daily INR 6. Hypertension Status Chronic Onset Date Unknown Plan -Blood pressure remains slightly elevated -Increase lisinopril to 20 mg by mouth twice a day -Monitor -Low-salt diet 7. DVT (deep venous thrombosis) Status Chronic Onset Date Unknown Plan -No signs of DVT -Continue Coumadin/anticoagulation 8. Lymphedema Status Chronic Onset Date Unknown Plan -Stable -No further evaluation Current status: Fair, improved Anticipated discharge date: Anticipated discharge 1-2 days Anticipated discharge placement: Home Patient care time: Time in chart review, patient interview, physical exam, CPOE, and care documentation: 25 mins Visit to patient today: 1 Complexity of care: Moderate DVT prophylaxis: Coumadin E&M Codes Rounding: Inpt-Moderate/06353
[2017-05-17 07:10] VITALS: BP 137/79
[2017-05-17 10:31] VITALS: BP 166/94
[2017-05-17 14:50] VITALS: BP 150/85
[2017-05-17 17:46] VITALS: BP 155/83
[2017-05-17 21:57] VITALS: BP 155/93
[2017-05-18 03:13] VITALS: BP 150/86
[2017-05-18 06:49] VITALS: BP 147/91
--- NOTE | 2017-05-18 06:56 | Progress Note ---
Subjective General Note Date: May 18, 2017 Admission Date: May 15, 2017 Hospital Day: 4 PCP: Gelacio Beard M.D. Status: Inpatient, ACU Advanced Directive: FULL CODE Room: 211 Admission History: The patient is a 46-year-old white male with a significant past medical history of type 2 diabetes mellitus, lymphedema of lower extremities, recurrent cellulitis, DVT, morbid obesity, who presented to [facility] emergency department on the day of admission secondary to complaints of pain, redness, swelling of left lower leg of [address] [facility] ER evaluation was consistent with cellulitis involving left lower leg. Secondary to the above, the patient was admitted by Ag Self M.D. for further evaluation and treatment. For other history present illness, past medical history, family history, social history, review of systems, and admission physical examination please see the patient's history and physical examination and ER visit note in the patient's medical record. Subjective: Doing well. No significant pain in left lower extremity. Persistent mild erythema/swelling. Patient requests: None Medications and Allergies Medications Current Medications Sig/Perlita Start time Last Medication Dose Route Stop Time Status Admin Clarify Med Order See Dose 0830 05/18 0830 AC Insts (1) IV 05/18 0831 Insulin Glargine 100 UNITS QHS 05/17 2100 CAN SC Insulin Glargine 100 UNITS QHS 05/17 2100 AC 05/17 SC 205 Lisinopril 20 MG BID 05/17 2100 AC 05/17 PO 205 Diphenhydramine HCl 25 MG Q6H PRN 05/17 0300 AC 05/18 PO 0254 Vancomycin HCl 1,500 MG 0100,0900,1700 05/16 1700 AC 05/18 Sodium Chloride 500 ML IV 0101 Patient Own See Dose QAM 05/16 0900 AC 05/17 Medication Insts (2) SC 0841 Amitriptyline HCl 25 MG QHS 05/15 2100 AC 05/17 PO 205 Atorvastatin Calcium 40 MG QPM 05/15 1800 AC 05/17 PO 1701 Insulin Human Lispro See Dose ACHS 05/15 1800 AC 05/17 Insts (3) SC 2057 Warfarin Sodium 10 MG DAILY@1400 06/ 1600 AC 05/17 PO 1405 Clopidogrel Bisulfate 75 MG DAILY 05/15 1231 AC 05/17 PO 0841 Sumatriptan Succinate 6 MG .[MR IN 1 HR] PRN 05/15 1230 AC 05/16 SC 0247 Pantoprazole Sodium 40 MG DAILY@0600 05/15 0600 AC 05/18 Sesquihydrate PO 0519 Acetaminophen 650 MG Q6H PRN 05/15 0500 AC 05/18 PO 0254 Ondansetron HCl 4 MG Q6H PRN 05/15 0500 AC IV Sodium Chloride 1,000 ML ASDIRECTED 05/15 0500 AC 05/18 IV 0519 Vancomycin HCl See Dose .[PER PHARMACY] 05/15 0500 AC Insts (4) IV Dose Instructions: (1)Clarify Med Order: VANCOMYCIN TROUGH (2)Patient Own Medication: VICTOZA INJ (3)Insulin Human Lispro: HIGH DOSE: ACCUCHECK AND SLIDING SCALE >>To change sliding scale DISCONTINUE this order and enter a NEW order. Thanks< (4)Vancomycin HCl: DOSING PER PHARMACY Allergies Coded Allergies: NKA (05/15/17) Reconcile Medications Scheduled Medications Albuterol Sulfate (Albuterol Hfa) 60 DOSE INH 2 PUFF IN Q4H (Reported) Amitriptyline HCl (Amitriptyline HCl 25 MG) 25 MG TAB 25 MG PO QHS (Reported) Clopidogrel Bisulfate (Plavix 75 MG) 75 MG TAB 75 MG PO DAILY (Reported) Insulin Aspart, Human Analog (NovoLOG 100 UNITS/ML PEN) 100 UNITS/ML INJ 25 UNITS SC PC diabetes (Reported) Insulin Degludec (Tresiba Flextouch) 200 UNIT/ML INJ 85 UNITS SC DAILY diabetes (Reported) Last Taken: 05/14/17 0800 Insulin Reg (Human) (HumaLIN R 100 UNITS/ML) 100 UNITS/ML INJ 4 UNITS SC AC ( Reported) Liraglutide (Victoza) 18 MG/3 ML INJ 1.8 SC DAILY (Reported) Pravastatin Sodium 40 MG TAB 40 MG PO HS (Reported) Warfarin Sodium (Coumadin) 10 MG TAB 10 MG PO DAILY (Reported) Scheduled PRN Medications Furosemide (Furosemide 40 MG) 40 MG TAB 40 MG PO DAILY PRN leg swelling ( Reported) Sumatriptan Succinate (Imitrex) 50 MG TAB 50 MG PRN FOR HEADACHE (Reported) Physical Exam Vital Signs / I&Os Vital Signs Date Time Temp Pulse Resp B/P Pulse O2 O2 Flow FiO2 Ox Delivery Rate 05/18 0649 98.8 81 19 147/91 96 Room Air 05/18 0313 98.8 85 18 150/86 97 Room Air 05/17 2157 99.0 88 18 155/93 100 Room Air 05/17 1746 99.3 92 18 155/83 96 Room Air 05/17 1700 Room Air 05/17 1450 97.9 84 18 150/85 99 Room Air 05/17 1031 98.1 89 20 166/94 99 Room Air 05/17 0710 97.7 79 19 137/79 98 Room Air I&O 05/18 0000 05/17 1600 05/17 0800 Intake Total 3338 360 3120 Output Total 267 601 8517 Balance 2588 -615 -130 General Appearance Alert, Oriented X3, Cooperative, No acute distress Lungs Clear to auscultation, Normal air movement Cardiovascular Regular rate and rhythm, Normal S1 and S2 Abdomen Normal bowel sounds, Soft, No tenderness Extremities No cyanosis, No clubbing, Edema left lower extremity and change. Persistent mild erythema. Neurological Cranial nerves intact, Strength 5/5 x4 ext's, No lateralizing signs Psych/Mental Status Mental status normal, Mood normal Assessment and Plan Problem List 1. Cellulitis and abscess of leg Status Acute Onset Date Unknown Plan -Stable to slightly improved -Persistent mild erythema left lower leg with persistent edema/lymphedema -WBC normal at 11.2 -Switch to Bactrim DS 1 by mouth twice a day -Possible discharge in a.m. 2. Diabetes mellitus Status Chronic Onset Date Unknown Plan -Patient with long-standing diabetes mellitus -Blood sugar improved this a.m. with increasing long-acting insulin yesterday -Continue present medical regimen -Monitor 3. Rhabdomyolysis Status Acute Onset Date Unknown Plan -Resolved 4. Chronic anticoagulation Status Chronic Onset Date Unknown Plan -INR 2.1 -Continue present medical therapy -Monitor daily INR in setting of initiation of Bactrim 5. Hypertension Status Chronic Onset Date Unknown Plan -Blood pressure remains mildly elevated -Lisinopril 20 mg by mouth twice a day, HCTZ 25 mg by mouth daily -Low-salt diet -Monitor 6. DVT (deep venous thrombosis) Status Chronic Onset Date Unknown Plan -history of DVT -No findings of DVT at this time -Continue anticoagulation 7. Lymphedema Status Chronic Onset Date Unknown Plan -Persistent left lower extremity edema -Outpatient follow-up with PCP -Monitor Current status: Fair, improved Anticipated discharge date: Anticipated discharge in a.m. Anticipated discharge placement: Home Patient care time: Time in chart review, patient interview, physical exam, CPOE, and care documentation: 25 mins Visit to patient today: 1 Complexity of care: Moderate DVT prophylaxis: Coumadin E&M Codes Rounding: Inpt-Moderate/10086
[2017-05-18 10:26] VITALS: BP 176/90
[2017-05-18 14:48] VITALS: BP 191/97
[2017-05-18 18:17] VITALS: BP 180/94
[2017-05-18 23:47] VITALS: BP 160/90
[2017-05-19 02:33] VITALS: BP 165/75
[2017-05-19 07:32] VITALS: BP 150/93
--- NOTE | 2017-05-19 07:38 | Discharge Summary ---
Discharge Summary Report Admit Date 05/15/17 Discharge Date 05/19/17 Admission Diagnosis 1. Cellulitis left lower extremity 2. Obesity 3. Diabetes mellitus 4. Rhabdomyolysis 5. Chronic anticoagulation 6. Hypertension 7. Recurrent DVT 8. Hyperlipidemia 9. Lymphedema Discharge Diagnosis 1. Cellulitis left lower extremity 2. Obesity 3. Diabetes mellitus 4. Rhabdomyolysis 5. Chronic anticoagulation 6. Hypertension 7. Recurrent DVT 8. Hyperlipidemia 9. Lymphedema Hospital Course The following problems and their management were noted during the patient's hospitalization: 1. Cellulitis left lower extremity 2. Obesity 3. Diabetes mellitus 4. Rhabdomyolysis 5. Chronic anticoagulation 6. Hypertension 7. Recurrent DVT 8. Hyperlipidemia 9. Lymphedema General Appearance Alert, Oriented X3, Cooperative, No acute distress Lab/Imaging Laboratory Tests 05/19 05/18 0520 0820 Coagulation INR (0.8 - 1.2) 1.9 Toxicology Vancomycin Trough (10.0 - 20.0 ug/mL) 12.2 Discharge Instructions/Meds For other recommendations regarding discharge diet, activity, followup, and discharge medications please see the patient's discharge instructions. Discharge condition: Fair, improved Greater than 30 min. was spent in the patient's discharge preparation including discharge interview and physical examination, progress note, discharge instructions, and discharge summary The patient was interviewed and examined on the day of discharge.
[2017-05-19 10:19] VITALS: BP 176/87
[2017-05-19 14:40] VITALS: BP 155/83
--- NOTE | 2017-05-19 17:42 | Progress Note ---
Subjective General Note Date: May 19, 2017 Admission Date: May 15, 2017 Hospital Day: 5 PCP: Gelacio Beard M.D. Status: Inpatient, ACU Advanced Directive: FULL CODE Room: 211 Admission History: The patient is a 46-year-old white male with a significant past medical history of type 2 diabetes mellitus, lymphedema of lower extremities, recurrent cellulitis, DVT, morbid obesity, who presented to [facility] emergency department on the day of admission secondary to complaints of pain, redness, swelling of left lower leg of 2 days duration. [facility] ER evaluation was consistent with cellulitis involving left lower leg. Secondary to the above, the patient was admitted by Ag Self M.D. for further evaluation and treatment. For other history present illness, past medical history, family history, social history, review of systems, and admission physical examination please see the patient's history and physical examination and ER visit note in the patient's medical record. Subjective: Doing well. No significant pain in left lower extremity. Only mild pain with movement. Persistent mild erythema/swelling. Eating well. Patient requests: None Medications and Allergies Medications Current Medications Sig/Perlita Start time Last Medication Dose Route Stop Time Status Admin Clarify Med Order See Dose 1130 05/21 1130 AC Insts (1) IV 05/21 1400 Vancomycin HCl 1,500 MG Q8H 05/19 2000 AC Sodium Chloride 500 ML IV Potassium Chloride 20 MEQ DAILY 05/19 1700 AC PO Vancomycin HCl See Dose .[PER PHARMACY] 05/19 1030 AC Insts (2) IV Hydrochlorothiazide 25 MG DAILY 05/18 1100 AC 05/19 PO 0828 Insulin Glargine 100 UNITS QHS 05/17 2100 AC 05/18 SC 2205 Lisinopril 20 MG BID 05/17 2100 AC 05/19 PO 0828 Diphenhydramine HCl 25 MG Q6H PRN 05/17 0300 AC 05/18 PO 0254 Patient Own See Dose QAM 05/16 0900 AC 05/19 Medication Insts (3) SC 0828 Amitriptyline HCl 25 MG QHS 05/15 2100 AC 05/18 PO 2153 Atorvastatin Calcium 40 MG QPM 05/15 1800 AC 05/18 PO 1702 Insulin Human Lispro See Dose ACHS 05/15 1800 AC 05/19 Insts (4) SC 1623 Warfarin Sodium 10 MG DAILY@1400 / 1600 AC 05/19 PO 1310 Clopidogrel Bisulfate 75 MG DAILY 05/15 1231 AC 05/19 PO 0828 Sumatriptan Succinate 6 MG .[MR IN 1 HR] PRN 05/15 1230 AC 05/19 SC 1623 Pantoprazole Sodium 40 MG DAILY@0600 05/15 0600 AC 05/19 Sesquihydrate PO 0504 Acetaminophen 650 MG Q6H PRN 05/15 0500 AC 05/18 PO 0254 Ondansetron HCl 4 MG Q6H PRN 05/15 0500 AC IV Sodium Chloride 1,000 ML ASDIRECTED 05/15 050 AC 05/18 IV 0519 Dose Instructions: (1)Clarify Med Order: VANCOMYCIN TROUGH (2)Vancomycin HCl: DOSING PER PHARMACY (3)Patient Own Medication: VICTOZA INJ (4)Insulin Human Lispro: HIGH DOSE: ACCUCHECK AND SLIDING SCALE >>To change sliding scale DISCONTINUE this order and enter a NEW order. Thanks< Allergies Coded Allergies: NKA (05/15/17) Reconcile Medications Scheduled Medications Albuterol Sulfate (Albuterol Hfa) 60 DOSE INH 2 PUFF IN Q4H (Reported) Amitriptyline HCl (Amitriptyline HCl 25 MG) 25 MG TAB 25 MG PO QHS (Reported) Clopidogrel Bisulfate (Plavix 75 MG) 75 MG TAB 75 MG PO DAILY (Reported) Insulin Aspart, Human Analog (NovoLOG 100 UNITS/ML PEN) 100 UNITS/ML INJ 25 UNITS SC PC diabetes (Reported) Insulin Degludec (Tresiba Flextouch) 200 UNIT/ML INJ 85 UNITS SC DAILY diabetes (Reported) Last Taken: 05/14/17 0800 Insulin Reg (Human) (HumaLIN R 100 UNITS/ML) 100 UNITS/ML INJ 4 UNITS SC AC ( Reported) Liraglutide (Victoza) 18 MG/3 ML INJ 1.8 SC DAILY (Reported) Pravastatin Sodium 40 MG TAB 40 MG PO HS (Reported) Warfarin Sodium (Coumadin) 10 MG TAB 10 MG PO DAILY (Reported) Scheduled PRN Medications Furosemide (Furosemide 40 MG) 40 MG TAB 40 MG PO DAILY PRN leg swelling ( Reported) Sumatriptan Succinate (Imitrex) 50 MG TAB 50 MG PRN FOR HEADACHE (Reported) Physical Exam Vital Signs / I&Os Vital Signs Date Time Temp Pulse Resp B/P Pulse O2 O2 Flow FiO2 Ox Delivery Rate 05/19 1610 Room Air 05/19 1440 98.6 105 20 155/83 97 Room Air 05/19 1019 97.9 96 20 176/87 95 Room Air 05/19 0732 98.2 98 20 150/93 97 Room Air 05/19 0233 98.6 108 20 165/75 98 Room Air 05/19 0027 Room Air 05/18 2347 98.4 103 20 160/90 96 Room Air 05/18 1817 98.8 105 20 180/94 98 Room Air I&O 05/19 0000 05/18 1600 05/18 0800 Intake Total 651 221 3045 Output Total 700 1225 1999 Balance -180 -505 -9 General Appearance Alert, Oriented X3, Cooperative, No acute distress Lungs Clear to auscultation, Normal air movement Cardiovascular Regular rate and rhythm, Normal S1 and S2, No murmurs, gallops, rubs Abdomen Normal bowel sounds, Soft, No tenderness Extremities No cyanosis, No clubbing, Persistent erythema/swelling left lower leg. Area nontender to palpation. Persistent warmth Neurological Cranial nerves intact, No lateralizing signs Psych/Mental Status Mental status normal, Mood normal LAB Results Laboratory Tests 05/19 05 Chemistry C-Reactive Protein (0.0 - 0.9 mg/dL) 12.0 Coagulation INR (0.8 - 1.2) 1.9 Hematology WBC (4.5 - 11.5 K/uL) 16.0 RBC (4.50 - 5.90 M/uL) 4.58 Hgb (13.5 - 17.5 gm/dL) 13.4 Hct (41.0 - 53.0 %) 41.7 MCV (80 - 100 fL) 91 MCH (26 - 34 pg) 29 RDW (11.6 - 14.8 %) 17.6 Neut % (Auto) (50 - 75 %) 77 Lymph % (Auto) (25 - 40 %) 8 [place] % (Auto) (3 - 14 %) 10 Eos % (Auto) (0 - 4 %) 1 Baso % (Auto) (0 - 2 %) 0 Band Neutrophils % (0 - 8 %) 4 Metamyelocytes % (0 - 1 %) 0 Myelocytes (0 - 1 %) 0 Other Cell Type 0 Plt Count, EDTA (150 - 400 K/uL) 200 Anisocytosis (manual) 1+ PUBS MCHC (31 - 37 g/dL) 32 ESR Westergren (0 - 15 mm/hr) 57 Assessment and Plan Problem List 1. Cellulitis and abscess of leg Status Acute Onset Date Unknown Plan -Patient has persistent erythema/swelling/warmth of left lower leg. -Patient switched to Bactrim DS 1 by mouth twice a day yesterday without significant improvement. -WBC, sedimentation rate, and CRP remain elevated. Abuse he has increased on Bactrim DS. -We'll switch back to vancomycin per pharmacy protocol. With improved status was discharged on IV vancomycin for completion course of antimicrobials. -Case discussed with Dr. Guy. 2. Diabetes mellitus Status Chronic Onset Date Unknown Plan -Patient with slightly increased blood sugars today. -Possibly related to infectious process exacerbation -Continue with long-acting insulin/sliding scale -Monitor 3. Chronic anticoagulation Status Chronic Onset Date Unknown Plan -INR borderline low at 1.9 -Continue present therapy -Monitor -Daily INR 4. Hypertension Status Chronic Onset Date Unknown Plan -Patient with mild elevation of BP -Intake greater than output -IV Lasix/hydrochlorothiazide/potassium supplementation -Monitor Current status: Fair, unstable Anticipated discharge date: Anticipated discharge in 2 days Anticipated discharge placement: Home Patient care time: Time in chart review, patient interview, physical exam, CPOE, and care documentation: 25 mins Visit to patient today: 1 Complexity of care: Moderate DVT prophylaxis: Coumadin E&M Codes Rounding: Inpt-Moderate/[id number]
[2017-05-19 18:30] VITALS: BP 156/82
[2017-05-19 22:41] VITALS: BP 153/78
[2017-05-20 03:19] VITALS: BP 179/92
--- NOTE | 2017-05-20 05:52 | Progress Note ---
Subjective General Note Date: May 20, 2017 Admission Date: May 15, 2017 Hospital Day: 6 PCP: Gelacio Beard M.D. Status: Inpatient, ACU Advanced Directive: FULL CODE Room: 211 Admission History: The patient is a 46-year-old white male with a past medical history of type 2 diabetes mellitus, lymphedema of lower extremities, recurrent cellulitis, DVT, morbid obesity, who on May 15, [address] [facility] emergency department with 3 days of pain, redness, swelling of left lower leg. He was subsequently admitted by hospitalist services. Patient was started on IV vancomycin for treatment of the cellulitis. Patient had general improvement over the course of the past 5 days. In preparation for patient to be discharged to home on day 5, patient's antibiotic was changed to an oral Bactrim. Patient however had a poor response to the Bactrim; including progressive leukocytosis increase in ESR and CRP. Patient's inflammatory markers were elevated. Patient therefore started back on the IV antibiotic. Now in preparation for patient to be discharged patient is being assessed for a PICC line and for home health IV antibiotic infusions. Patient should complete an additional days of IV antibiotics. Other complications to patient's cellulitis and response to care as included his diabetes mellitus and lower extremity lymphedema. For other history present illness, past medical history, family history, social history, review of systems, and admission physical examination please see the patient's history and physical examination and ER visit note in the patient's medical record. Subjective No acute overnight concerns. Patient is doing well. Patient reports no pain in lower extremity. Patient continues complaining of the swelling in the lower extremity along with redness. Patient otherwise comfortable and ready to go home Constitutional Denies: Fever, Weakness, Malaise. Respiratory Denies: SOB w/exertion. Cardiovascular Denies: Palpitations. Physical Exam Vital Signs / I&Os Vital Signs Date Time Temp Pulse Resp B/P Pulse O2 O2 Flow FiO2 Ox Delivery Rate 05/20 0319 98.2 94 16 179/92 96 Room Air 05/20 0034 Room Air 05/19 2241 99.9 105 16 153/78 98 Room Air 0.0 05/19 1830 99.7 107 20 156/82 96 Room Air 05/19 1610 Room Air 05/19 1440 98.6 105 20 155/83 97 Room Air 05/19 1019 97.9 96 20 176/87 95 Room Air 05/19 0732 98.2 98 20 150/93 97 Room Air I&O 05/19 0800 05/19 1600 05/20 0000 Intake Total 500 800 953 Output Total 600 1700 1250 Balance -100 -900 -297 General Appearance Oriented X3, Cooperative Lungs Clear to auscultation Cardiovascular Normal S1 and S2 Extremities Lymphedema lower extremity prodrome and on the left side. Erythematous changes noted in the left lower extremity nearly circumferential from knee to the ankle. Moderate swelling. Palpation of pulses Neurological Cranial nerves intact Psych/Mental Status Mood normal LAB Results Laboratory Tests 05/20 05/20 0515 0515 Chemistry Lactic Acid Pending Procalcitonin Pending Assessment and Plan Problem List 1. Cellulitis and abscess of leg Status Acute Onset Date Unknown Plan Cellulitis involving left lower extremity is resolving. Patient. Long-standing infection that is resistant. Patient has risk factors for delayed healing including the lymphedema and the diabetes mellitus. Attempted by mouth Bactrim however this did not allow for complete coverage due to inadequacy of possible dosage. PICC line has been placed and patient has started on IV vancomycin He will be discharged on IV vancomycin. Consider 10 days of therapy. Follow-up with primaryc care and consider ID consultation if needed 2. Diabetes mellitus Status Chronic Onset Date Unknown Plan Mildly resistance and diabetic management. Attempted to titrate insulins to normalize blood sugars. Patient on admission was 300 on that sugar reading. Attending to keep the blood sugars between 110-150. Optimize with Lantus units SC daily Continue with the Victoza 1.8 In addition he will continue with the Humulin and a high-dose sliding scale. Nutrition should be involved patient should've follow-up with nutritional support. 3. DVT (deep venous thrombosis) Status Chronic Onset Date Unknown Plan Monitored and maintained appropriate anticoagulation. Discharge home on 10 mg Coumadin daily. Out patient INR in the next 5 to 10 days. 4. Chronic anticoagulation Status Chronic Onset Date Unknown Plan Chronic anticoagulation for recurrent DVTs Warfarin 10 mg daily. Primary care follow-up for repeat pro times 5. Hypertension Status Chronic Onset Date Unknown Plan Personally controlled blood pressure on admission. Starting lisinopril at 20 mg twice a day Also added hydrochlorothiazide 25 mg daily. Continue with the regimen as discharged. 6. Lymphedema Status Chronic Onset Date Unknown Plan Under physical therapy and vascular medicine for treatment of the lymphedema. Current status: Fair, unstable Anticipated discharge date: Anticipated discharge in 2 days Anticipated discharge placement: Home Patient care time: Time in chart review, patient interview, physical exam, CPOE, and care documentation: 35 mins Visit to patient today: 1 Complexity of care: Moderate DVT prophylaxis: Coumadin E&M Codes Rounding: Inpt-Moderate/[id number] Discharge: Inpt >30 min spent/[id number]
[2017-05-20 07:11] VITALS: BP 163/88
--- NOTE | 2017-05-20 10:46 | DIAGNOSTIC IMAGING REPORT ---
PROCEDURE: XR CHEST 1 VIEW INDICATION: PICC PLACEMENT CONFIRMATION TECHNIQUE: Portable AP view 10:36 a.m. COMPARISON: Chest x-ray 05/15/2017. FINDINGS: Interval placement of a right PICC line with the tip in the proximal SVC. Poor inspiration with mild left basilar atelectasis. Heart and mediastinum are normal. Thorax is normal. IMPRESSION: 1. Right PICC line in satisfactory position 2. Poor inspiration with mild left basilar atelectasis 3. Results called to respiratory (Ish).
--- NOTE | 2017-05-20 11:05 | Discharge Summary ---
Discharge Summary Report Admit Date 05/15/17 Discharge Date 05/20/17 Admission Diagnosis 1. Cellulitis left lower extremity 2. Obesity 3. Diabetes mellitus 4. Rhabdomyolysis 5. Chronic anticoagulation 6. Hypertension 7. Recurrent DVT 8. Hyperlipidemia 9. Lymphedema Discharge Diagnosis 1. Cellulitis left lower extremity 2. Obesity 3. Diabetes mellitus 4. Rhabdomyolysis 5. Chronic anticoagulation 6. Hypertension 7. Recurrent DVT 8. Hyperlipidemia 9. Lymphedema Brief History See history as reported in the HPI and Dr. Ag Self MD Briefly patient is a 46-year-old white male who is diabetic and with chronic lymphedema presenting with swelling in the left lower extremity. Diagnosis of cellulitis and placed on IV vancomycin. Hospital Course On May 15, 2017 patient presented to the [facility] emergency department with 3 days of pain, redness, swelling of left lower leg. He was subsequently admitted by hospitalist services. Patient was started on IV vancomycin for treatment of the cellulitis. Patient had general improvement over the course of the past 5 days. She had dietary management and blood sugar management along with blood pressure management issues. Patient was titrated up on his long-acting Lantus 100 units subcutaneous daily plus he was placed on a high dose sliding scale of Humulin, patient was also started back on his Actos. Patient had elevated blood pressure while inpatient. Patient started on lisinopril 20 mg twice a day in addition to hydrochlorothiazide 25 mg daily patient had good response with near normalization of blood pressure. Patient's anticoagulant was moderately stable and therapeutic In preparation for patient to be discharged to home on day 5, patient's antibiotic was changed to an oral Bactrim. Patient however had a poor response to the Bactrim; including progressive leukocytosis increase in ESR and CRP. Patient's inflammatory markers were elevated. Patient therefore started back on the IV antibiotic. Subsequently in preparation for patient to be discharged a PICC line was placed and patient was then discharged on health IV antibiotic infusions. Patient should complete an additional days of IV antibiotics. Other complications to patient's cellulitis and response to care as included his diabetes mellitus and lower extremity lymphedema. General Appearance Oriented X3, Cooperative, No acute distress HEENT EOMI Lungs Normal air movement Cardiovascular Normal S1, Normal S2 Abdomen Soft Skin redness with warmth in the left lower extremity Lab/Imaging Laboratory Tests 05/20 05/20 05/20 05/20 0515 0515 0515 0845 Chemistry Plasma Sodium (136 - 145 mmol/L) 138 Plasma Potassium (3.5 - 5.1 mmol/L) 3.6 Plasma Chloride (98 - 107 mmol/L) 100 CO2 (Enzymatic) (21 - 32 mmol/L) 30 BUN (7 - 18 mg/dL) 13 Creatinine (0.6 - 1.3 mg/dL) 1.1 Est GFR ( Amer) (mL/min) >60 Est GFR (Non-Af Amer) (mL/min) >60 Glucose (70 - 110 mg/dL) 167 Lactic Acid (0.4 - 2.0 mmol/L) 0.8 Plasma Calcium (8.5 - 10.1 mg/dL) 8.3 Procalcitonin (0 - 0.5 ng/mL) <0.5 Coagulation INR (0.8 - 1.2) 2.0 Hematology WBC (4.5 - 11.5 K/uL) 17.1 RBC (4.50 - 5.90 M/uL) 4.57 Hgb (13.5 - 17.5 gm/dL) 13.0 Hct (41.0 - 53.0 %) 41.4 MCV (80 - 100 fL) 91 MCH (26 - 34 pg) 28 RDW (11.6 - 14.8 %) 17.1 Neut % (Auto) (50 - 75 %) 80 Lymph % (Auto) (25 - 40 %) 7 [place] % (Auto) (3 - 14 %) 11 Eos % (Auto) (0 - 4 %) 0 Baso % (Auto) (0 - 2 %) 0 Band Neutrophils % (0 - 8 %) 2 Metamyelocytes % (0 - 1 %) 0 Myelocytes (0 - 1 %) 0 Other Cell Type 0 Plt Count, EDTA (150 - 400 K/uL) 195 Anisocytosis (manual) 2+ PUBS MCHC (31 - 37 g/dL) 31 Discharge Instructions/Meds Patient is discharged home with home health, PICC line in place and recommendations for daily infusion of vancomycin 1500 mg every 8 hours for the next 10 days. Patient will continue with the recommended infusion to follow up with primary care. If progressive worsening or responsiveness to the infusion patient has been informed to return to the ED for further follow-up. In-patient patient is discharged home on antihypertensives lisinopril 20 mg taken twice a day in addition to this he is to take hydrochlorothiazide 25 mg daily. Patient will continue with the Coumadin anticoagulation. Patient will need to follow up with primary care for a pro time in the next 5-7 days. Should continue the Coumadin 10 mg by mouth daily as prescribed. Edition continue the Plavix 75 mg daily. Aspirin 325 mg daily. For migraine headaches; sumatriptan 6 mg as needed for headaches Atorvastatin 40 mg by mouth daily. Diabetes management start patient Amairani had 100 units SC at bedtime. In addition he will be on a high-dose sliding scale of Humulin. This will require that he measures his blood sugars before meals. Continue the amitriptyline at 25 mg daily at bedtime. Diphenhydramine 25 mg Additional and further recommendations regarding discharge diet, activity, followup, and discharge medications please see the patient's discharge instructions. Discharge condition: Fair, improved Greater than 30 min. was spent in the patient's discharge preparation including discharge interview and physical examination, progress note, discharge instructions, and discharge summary The patient was interviewed and examined on the day of discharge. E&M Codes Discharge: Inpt >30 min spent/[id number]
[2017-05-20 11:29] VITALS: BP 152/81
[2017-05-20] MEDS ORDERED: LANTUS SOL100 UNITS/ SC (11:51)
[2017-05-20] MEDS ORDERED: HUMALOG KWI100 MG/ML SC (11:53)
[2017-05-20] MEDS ORDERED: [UNRECOGNIZED DRUG - REMARK] IV (11:53)
[2017-05-20] MEDS ORDERED: LISINOPRIL10 MG PO (11:55)
[2017-05-20] MEDS ORDERED: HYDROCHLOROTHIA50 MG PO (11:55)
--- NOTE | 2017-05-20 13:03 | Provider's Discharge Care Plan ---
Problem, Goal, Plan Problem List 1. Cellulitis and abscess of leg Goals: Improved health/wellness, Improve nutrition status, Learn about illness Instructions: Follow up as directed, Avoid processed foods 2. Obesity Goals: Improve disease control, Therapeutic intervention Instructions: Take meds as directed, Avoid processed foods 3. Diabetes mellitus Goals: Improve function, Improve nutrition status, Learn about illness, Therapeutic intervention Instructions: Follow up as directed, Take meds as directed 4. Rhabdomyolysis Goals: Prevent disease progress Instructions: Follow up as directed 5. Chronic anticoagulation Goals: Improve nutrition status, Learn about illness, Therapeutic intervention Instructions: Follow up as directed 6. Hypertension Goals: Improved health/wellness, Therapeutic intervention Instructions: Follow up as directed 7. DVT (deep venous thrombosis) Goals: Prevent disease progress, Therapeutic intervention Instructions: Take meds as directed 8. Hyperlipidemia Goals: Improve disease control Instructions: Take meds as directed 9. Lymphedema Goals: Therapeutic intervention Instructions: Take meds as directed
== END 2017-05-20 15:00 | disposition home or self-care (01) | DRG 383 ==
LOC: ED SRH 03:08 → TRANS SRH 04:25 → ACUTE2 SRH 04:25
PROVIDERS: ADMIT Internal Medicine
PROC: 02HV33Z Insertion of Infusion Device into Superior Vena Cava, Percutaneous Approach (ICD-10-PCS; principal; 2017-05-20)
DX: L03.116 Cellulitis of left lower limb (principal); I89.0 Lymphedema, not elsewhere classified; M62.82 Rhabdomyolysis; E11.8 Type 2 diabetes mellitus with unspecified complications; I10 Essential (primary) hypertension; Z79.4 Long term (current) use of insulin; E78.5 Hyperlipidemia, unspecified; Z86.718 Personal history of other venous thrombosis and embolism; Z79.01 Long term (current) use of anticoagulants; E66.01 Morbid (severe) obesity due to excess calories; Z68.42 Body mass index [BMI] 45.0-49.9, adult